=== PATIENT | female | born 1950 | race Caucasian/White ===

== ENCOUNTER 2017-07-27 21:16 | Emergency (ER) | payer MEDICARE, OTHER ==
[~2017-07-27] VITALS: Ht 152.4 cm; Wt 86.2 kg
[~2017-07-27 21:16] MED LIST: ACID CONTROL20 MG PO; ASPIR 8181 MG PO; ASPIRIN325 PO; ATIVAN1 MG PO; BAYER CHEWABLE81 MG PO; CELEXA10 MG PO; COMPLETE MULTI1 EACH PO; COREG6.25 MG PO; EFFIENT10 MG PO; ELIQUIS5 MG; ELIQUIS5 MG PO; FISH OIL 1,001000 M2 PO; FLAX SEED OIL1000 MG PO; FLECAINIDE ACET50 M1 PO; FLEXERIL PO; GAS RELIEF125 M1 PO; IMDUR 30 MG TAB30 M1 PO; KLOR-CON 1010 MEQ PO; LASIX 20 MG TAB20 MG PO; LISINOPRIL10 MG PO; LISINOPRIL40 MG PO; LISINOPRIL5 MG PO; MAGNESIUM OXID400 MG PO; METOPROLOL SUCC25 M1 PO; MINOCIN100 MG PO; MOBIC15 MG PO; NAPROSYN500 MG PO; NIACIN500 MG PO; NITROGLYCERIN0.4 MG SUBLING; NORVASC 5 MG TAB5 MG PO; NORVASC5 MG PO; PACERONE 200 M200 M1 PO; PEPCID20 MG PO; PLAVIX 75 MG TA75 M1 PO; POTASSIUM GLUC500 MG PO; PRAVASTATIN SOD20 MG PO; PRAVASTATIN SOD40 MG PO; PREVACID30 MG PO; PROAIR HFA8.5 GM INH; RANEXA500 MG PO; RESTORIL30 MG PO; SENNA8.6 MG PO; TOPROL XL25 MG PO; TOPROL XL50 MG PO; TYLENOL325 MG PO; UNICOMPLEX M TA1 TA1 PO; VITAMIN B122500 MCG PO; VITAMIN C500 M1 PO; VITAMIN D1000 UNI1 PO; VITAMIN E400 UNIT PO
[2017-07-27] MEDS ORDERED: HYDROCODONE-AP1 EAC6 PO (22:40)
[2017-07-27 23:44] VITALS: BP 120/74
[2017-08-24] MEDS ORDERED: ASPIR 8181 MG PO (10:35)
[2017-08-24] MEDS ORDERED: CARDIZEM CD180 MG PO (10:38)
[2017-08-24] MEDS ORDERED: VOLTAREN GEL 1100 G2 TOP (10:38)
[2018-02-01] MEDS ORDERED: MULTAQ400 MG PO (07:23)
[2018-02-01] MEDS ORDERED: MULTI VITAMIN1 EACH PO (07:24)
[2018-03-08] MEDS ORDERED: COREG6.25 MG PO (12:31)
[2018-03-08] MEDS ORDERED: FISH OIL 1,001000 M2 PO (12:34)
[2018-03-08] MEDS ORDERED: PEPCID20 MG PO (12:34)
[2018-03-08] MEDS ORDERED: LASIX 20 MG TAB20 MG PO (12:35)
== END 2017-07-27 23:46 | disposition home or self-care (01) ==
LOC: M.ERS 21:16
DX: S52.511A Displaced fracture of right radial styloid process, initial encounter for closed fracture (principal); S62.617A Displaced fracture of proximal phalanx of left little finger, initial encounter for closed fracture; I10 Essential (primary) hypertension; I25.10 Atherosclerotic heart disease of native coronary artery without angina pectoris; I48.91 Unspecified atrial fibrillation; G47.30 Sleep apnea, unspecified; Z86.73 Personal history of transient ischemic attack (TIA), and cerebral infarction without residual deficits; Z87.891 Personal history of nicotine dependence; W01.0XXA Fall on same level from slipping, tripping and stumbling without subsequent striking against object, initial encounter; Y93.89 Activity, other specified; Y92.89 Other specified places as the place of occurrence of the external cause; Y99.8 Other external cause status

== ENCOUNTER → 2017-07-30 | Outpatient (CLI) | payer MEDICARE, OTHER ==
[~2017-07-30] MED LIST changes: +ATORVASTATIN CA40 MG PO; +CARAFATE 1 GM TA1 G1 PO; +CARAFATE 11 GM/10 M1 PO; +CARDIZEM CD180 MG PO; +CARVEDILOL3.125 MG PO; +DILTIAZEM 24HR180 M1 PO; +HYDROCODONE-AP1 EAC6 PO; +MULTAQ400 MG PO; +MULTI VITAMIN1 EACH PO; +PANTOPRAZOLE SO40 M1 PO; +VOLTAREN GEL 1100 G2 TOP
--- NOTE | 2017-07-30 14:14 | 2DMMODE ---
[place] [address] 2 D/M-MODE ECHOCARDIOGRAM Name: FRANCISCO J FLOWERS I Room: [facility]#: [id number] Admission: 07/30/17 Attend Phys: Juvenal Terrazas, Discharge: Date of : 50 Date of Service: 07/30/17 1414 Report #: [id number] THIS REPORT FOR: //name// APPROVED REPORT Study performed: 07/30/2017 08:13:02 EXAM: Comprehensive 2D, Doppler, and color-flow Echocardiogram Patient Location: Out-Patient Status: routine BSA: 1.83 HR: 71 bpm BP: 86/58 mmHg Other Information Study Quality: Good Indications Congestive Heart Failure Atrial Fibrillation 2D Dimensions IVSd: 11.53 (7-11mm) LVOT Diam: 20.77 (18-24mm) LVDd: 42.32 mm PWd: 9.14 (7-11mm) Ascending Ao: 26.50 (22-36mm) LVDs: 33.09 (25-40mm) Aortic Root: 25.47 mm Volumes Left Atrial Volume (Systole) LA ESV Index: 44.00 mL/m2 Aortic Valve AoV Peak Jacky.: 0.97 m/s AO Peak Gr.: 3.73 mmHg LVOT Max P.99 mmHg AO Mean Gr.: 1.97 mmHg LVOT Mean P.54 mmHg LVOT Max V: 0.50 m/s AO V2 VTI: 17.80 cm LVOT Mean V: 0.34 m/s TALHA (VTI): 1.78 cm2 LVOT V1 VTI: 9.35 cm Mitral Valve E/A Ratio: 3.80 MV Decel. Time: 169.90 ms MV E Max Jacky.: 0.82 m/[place] [address] 2 D/M-MODE ECHOCARDIOGRAM Name: FRANCISCO J FLOWERS I Room: [facility]#: [id number] Admission: 07/30/17 Attend Phys: Juvenal Terrazas, Discharge: Date of : 50 Date of Service: 07/30/17 1414 Report #: [id number] MV PHT: 49.27 ms MVA (PHT): 4.47 cm2 TDI E/Lateral E': 4.56 E/Medial E': 7.45 Medial E' Jacky.: 0.11 m/s Lateral E' Jacky.: 0.18 m/s Pulmonary Valve PV Peak Jacky.: 0.81 m/s PV Peak Gr.: 2.62 mmHg Tricuspid Valve TR Peak Gr.: 25.44 mmHg RVSP: 29.44 mmHg Left Ventricle The left ventricle is normal size. There is global hypokinesis of the left ventricle. There is normal left ventricular wall thickness. Left ventricular systolic function is severely decreased. LVEF is 30-35%. Right Ventricle The right ventricle is normal size. The right ventricular systolic function is normal. Atria Left atrium is moderately dilated. The right atrium size is normal. Aortic Valve The aortic valve is normal in structure. No aortic regurgitation is present. There is no aortic valvular stenosis. Mitral Valve The mitral valve is normal in structure. Mild mitral regurgitation. No evidence of mitral valve stenosis. Tricuspid Valve The tricuspid valve is normal in structure. Mild tricuspid regurgitation. The RVSP is __29 mmHg. Pulmonic Valve The pulmonary valve is normal in structure. Mild pulmonic regurgitation. Great Vessels The aortic root is normal in size. IVC is [place] [address] 2 D/M-MODE ECHOCARDIOGRAM Name: FRANCISCO J FLOWERS I Room: [facility]#: [id number] Admission: 07/30/17 Attend Phys: Juvenal Terrazas, Discharge: Date of : 50 Date of Service: 07/30/17 1414 Report #: [id number] collapses with >50% inspiration Pericardium There is no pericardial effusion. <Conclusion> LVEF is 30-35%. Left atrium is moderately dilated. Mild mitral regurgitation. <ELECTRONICALLY SIGNED> By: Celestino Hooper MD, [facility] 07/30/17 1414 1414 141 Celestino Hooper MD, [facility] /INF
== END ==
LOC: M.CRD 07:59
DX: I08.1 Rheumatic disorders of both mitral and tricuspid valves (principal); I42.0 Dilated cardiomyopathy; I50.9 Heart failure, unspecified; I48.91 Unspecified atrial fibrillation; I10 Essential (primary) hypertension; E78.5 Hyperlipidemia, unspecified; I25.110 Atherosclerotic heart disease of native coronary artery with unstable angina pectoris; G45.9 Transient cerebral ischemic attack, unspecified; Z90.49 Acquired absence of other specified parts of digestive tract; Z87.891 Personal history of nicotine dependence

== ENCOUNTER → 2017-08-24 | Outpatient (CLI) | payer MEDICARE, OTHER ==
[~2017-08-24] VITALS: Ht 154.9 cm; Wt 87.5 kg
[2017-08-24 10:00] VITALS: BP 127/92
[2017-08-24 10:07] LABS: HEMOGLOBIN 14.5 gm/dL (12.0-15.0); MCH 30.4 pg (26.0-34.0); MCV 92.1 fL (80.0-100.0); MPV 8.7 fl. (7.2-11.1); RBC 4.78 mil/uL (4.20-5.00); RDW-CV 14.9 % (10.5-14.5)
[2017-08-24 10:13] LABS: CALCIUM 9.3 mg/dL (8.5-10.1); CREATININE 0.9 mg/dL (0.6-1.3); POTASSIUM 4.1 mmol/L (3.5-5.1)
[2017-08-24 10:15] LABS: APTT 30.9 Seconds (25.0-31.3); INR 1.1; PROTIME 10.4 Seconds (9.20-11.50)
[2017-08-24 13:17] VITALS: BP 151/100
[2017-08-24 13:33] VITALS: BP 149/101
[2017-08-24 14:04] VITALS: BP 166/102
[2017-08-24 14:30] VITALS: BP 150/82
--- NOTE | 2017-08-24 18:12 | EKG ---
[place] [address] ELECTROCARDIOGRAM REPORT Name: FRANCISCO J FLOWERS I Room: [facility]#: [id number] Admission: 08/24/17 Attend Phys: Juvenal Terrazas MD Discharge: Date of : 50 Report #: [id number] THIS REPORT FOR: //name// [facility] Test Date: 2017-08-24 Test Time: 10:11:21 Pat Name: FRANCISCO J FLOWERS Department: Room: Gender: F General Assignment Reporter: CUAUHTEMOC : 1950 Requested By: Magdiel Mitchell Order Number: [id number] Reading MD: Magdiel Mitchell Measurements Intervals [place] Rate: 102 P: CA: QRS: 4 QRSD: 89 T: 56 QT: 331 QTc: 432 Interpretive Statements Atrial fibrillation Borderline T wave abnormalities Compared to ECG 03/30/2017 07:05:43 T-wave abnormality now present Sinus rhythm no longer present First degree AV block no longer present Intraventricular conduction delay no longer present Electronically Signed On 08-24-2017 18:12:16 CDT by Magdiel Mitchell [email or web address] <ELECTRONICALLY SIGNED> By: Magdiel Mitchell MD, FACC 08/24/17 1812 1011 1011 Magdiel Mitchell MD, FAC /EPI
--- NOTE | 2017-08-24 18:13 | EKG ---
[place] [address] ELECTROCARDIOGRAM REPORT Name: FRANCISCO J FLOWERS I Room: [facility]#: [id number] Admission: 08/24/17 Attend Phys: Juvenal Terrazas MD Discharge: Date of : 50 Report #: [id number] THIS REPORT FOR: //name// [facility] Test Date: 2017-08-24 Test Time: 13:13:05 Pat Name: FRANCISCO J FLOWERS Department: Room: Gender: F Parent Educator: CUAUHTEMOC : 1950 Requested By: Magdiel Mitchell Order Number: [id number] Reading MD: Magdiel Mitchell Measurements Intervals [place] Rate: 101 P: MT: QRS: 3 QRSD: 103 T: 33 QT: 354 QTc: 459 Interpretive Statements Atrial fibrillation Compared to ECG 03/30/2017 07:05:43 Sinus rhythm no longer present First degree AV block no longer present Intraventricular conduction delay no longer present Electronically Signed On 08-24-2017 18:13:35 CDT by Magdiel Mitchell [email or web address] <ELECTRONICALLY SIGNED> By: Magdiel Mitchell MD, [facility] 08/24/17 181 131 12 Magdiel Mitchell MD, FAC /EPI
--- NOTE | 2017-09-13 17:54 | CARD ---
[address] [address] CARDIAC CATH REPORT Name: FRANCISCO J FLOWERS I [id number] Admission: 08/24/17 Attend Phys: Juvenal Terrazas MD Discharge: Date of : 50 Report #: [id number] THIS REPORT FOR: //name// APPROVED REPORT Study performed: 08/24/2017 10:57:38 Patient Status: Out-Patient Room #: Event Personnel: Magdiel Mitchell Aircraft Engine Mechanic Overhaul, Kyung Plasencia RN Foreclosure Field Inspector, Nupur Nunez Monitor, Darrell Nguyen (R) Scrub Exam: placement of a dual-chamber pacing ICD. Indications: dilated cardiomyopathy The patient is a 67 year-old female with a history of . Patient Info Last EF%: 30% Date: July 2017 NYHA Heart Class: II Reason for implant: Primary prevention Intraoperative Conscious Sedation Sedation start time: 11:35 Case end Time: 12:31 Fentanyl 100 mcg Versed 3 mg Implanted Devices: Biotronik Plexa ProMRI, model #992355, serial #[id number] Biotronik Solia S 53, model #456248, serial #[id number] Biotronik Ilivia 7 DR-T, model #246486, serial #[id number] Procedure After explaining the risks, benefits, and alternative options, informed consent was obtained from the patient. The patient was brought to the cardiac catheterization lab and the left chest and shoulder were prepped and draped in the usual fashion. During this case, Fluoroscopy and visipaque 20cc were used for imaging. After informed consent was obtained the patient was brought to the cardiac catheterization lab. The area of the left chest was prepped and draped in sterile fashion. Local anesthesia was achieved with 1% lidocaine. Next after an initial [place] [address] CARDIAC CATH REPORT Name: FRANCISCO J FLOWERS I Room: [facility]#: [id number] Admission: 08/24/17 Attend Phys: Juvenal Terrazas MD Discharge: Date of : 50 Report #: [id number] was formed over the left pectoralis muscle using electrocautery and blunt dissection. Next the left subclavian vein was accessed using a micropuncture kit after and peripheral injection of contrast dye. Ultimately a safety J guidewire was advanced to level right atrium under fluoroscopic guidance. The safety J guidewire was externally fixed using a Josiane forcep. The micropuncture kit was utilized a second time to access the left subclavian vein. A second safety J guidewire was advanced to the right atrium under fluoroscopic guidance. Next a 7 Niuean tear-away introducer was advanced over the free guidewire. The dilator and guidewire were removed and a pacing defibrillator lead advanced to the right ventricle under fluoroscopic guidance. The lead was actively fixed. Pacing threshold and sensing were checked and deemed to be satisfactory. There was no diaphragmatic stimulation at maximal output. The tear-away introducer was then removed. Next a second 7 Niuean tear-away introducer was advanced over the remaining guidewire. The dilator and guidewire were removed and an atrial lead advanced to the right atrial appendage under fluoroscopic guidance. The lead was actively fixed. Pacing threshold and sensing were checked and deemed to be satisfactory. There was no phrenic nerve stimulation at maximal output. The tear-away introducer was then removed. Adequate slack was assured and the atrial and ventricular leads. The atrial and ventricular leads were then secured within the device pocket using the designated cuff and interrupted stitches of 2-0 silk suture. The device pocket was then flushed with antibiotic solution. Next a dual-chamber pacing ICD generator was attached to the atrial and ventricular leads. The generator and redundant lead were then placed within the device pocket. The deep tissues were closed using interrupted stitches of 2-0 Vicryl. The skin incision was then closed with a single subcuticular stitch of 4-0 Vicryl. Findings The sensed P-wave was 2.2 mV. The sensed R-wave was 8.9 mV. The atrial lead pacing threshold was not checked as the patient was in atrial fibrillation. The ventricular lead pacing threshold was 0.6 V at 0.40 ms. Atrially pacing impedance was 566 ohms. The ventricular lead pacing impedance was 696 ohms. Ventricular lead shocking impedance was 58 ohms. The device was set to the DDD mode with a lower pacing rate of 50 bpm and an upper tracking rate 130 bpm. VT 1 zone 154 bpm. VT 2 zone 176 bpm. VF zone 250 bpm. Conclusion 1. Dilated cardiomyopathy with reduced EF despite maximal medical [facility] [address] [place] [address] CARDIAC CATH REPORT Name: FRANCISCO J FLOWERS I Room: [facility]#: [id number] Admission: 08/24/17 Attend Phys: Juvenal Terrazas MD Discharge: Date of : 50 Report #: [id number] management. 2. Successful placement of a dual-chamber pacing defibrillator. Recommendations 1. Follow-up site check in one week. <ELECTRONICALLY SIGNED> By: Magdiel Mitchell MD, FACC 09/13/17 1754 1754 1754Micjeffery Mitchell MD, FACC /INF
== END | disposition home or self-care (01) ==
LOC: M.CL 09:33
PROVIDERS: Internal Medicine Cardiovascular Disease
DX: I42.0 Dilated cardiomyopathy (principal); I48.91 Unspecified atrial fibrillation; I10 Essential (primary) hypertension; I25.10 Atherosclerotic heart disease of native coronary artery without angina pectoris; G47.33 Obstructive sleep apnea (adult) (pediatric); Z95.5 Presence of coronary angioplasty implant and graft; Z90.49 Acquired absence of other specified parts of digestive tract; Z86.73 Personal history of transient ischemic attack (TIA), and cerebral infarction without residual deficits; Z79.01 Long term (current) use of anticoagulants; Z98.890 Other specified postprocedural states; Z79.82 Long term (current) use of aspirin; Z79.899 Other long term (current) drug therapy

== ENCOUNTER → 2017-08-31 | Outpatient (CLI) | payer MEDICARE, OTHER ==
[2017-08-31 15:22] LABS: CALCIUM 9.2 mg/dL (8.5-10.1); CREATININE 1.4 mg/dL (0.6-1.3); POTASSIUM 4.6 mmol/L (3.5-5.1)
== END ==
LOC: M.LAB 14:49
PROVIDERS: Nurse Practitioner
DX: I50.22 Chronic systolic (congestive) heart failure (principal)

== ENCOUNTER → 2017-09-07 | Outpatient (CLI) | payer MEDICARE, OTHER ==
[2017-09-07 11:33] LABS: CALCIUM 9.6 mg/dL (8.5-10.1); CREATININE 0.9 mg/dL (0.6-1.3); POTASSIUM 4.7 mmol/L (3.5-5.1)
== END ==
LOC: M.LAB 11:13
PROVIDERS: Nurse Practitioner
DX: I42.0 Dilated cardiomyopathy (principal); I50.22 Chronic systolic (congestive) heart failure

== ENCOUNTER 2017-09-26 21:44 | Inpatient (IN) | payer MEDICARE, OTHER ==
[~2017-09-26] VITALS: Ht 152.4 cm; Wt 86.7 kg
[~2017-09-26 21:44] MED LIST changes: -ATORVASTATIN CA40 MG PO; -CARAFATE 1 GM TA1 G1 PO; -CARAFATE 11 GM/10 M1 PO; -CARVEDILOL3.125 MG PO; -DILTIAZEM 24HR180 M1 PO; -MULTAQ400 MG PO; -MULTI VITAMIN1 EACH PO; -PANTOPRAZOLE SO40 M1 PO
[2017-09-26 21:45] VITALS: BP 133/64
[2017-09-26 22:02] LABS: ABSOLUTE BASOPHILS 0.1 thou/uL (0.0-0.2); ABSOLUTE EOSINOPHILS 0.2 thou/uL (0.0-0.7); ABSOLUTE MONOCYTES 0.5 thou/uL (0.0-1.2); ABSOLUTE NEUTROPHILS 4.4 thou/uL (1.6-8.1); EOSINOPHILS 3.1 %; HEMATOCRIT 40.9 % (37.0-47.0); HEMOGLOBIN 13.4 gm/dL (12.0-15.0); LYMPHOCYTES 27.4 %; MCH 30.1 pg (26.0-34.0); MCHC 32.7 g/dL (28.0-37.0); MCV 91.9 fL (80.0-100.0); MONOCYTES 7.6 %; MPV 8.4 fl. (7.2-11.1); NUCLEATED RBCS 0 /100WBC; PLATELET COUNT* 219 thou/uL (150-400); POLYS 60.9 %; RBC 4.45 mil/uL (4.20-5.00); WBC 7.2 thou/uL (4.0-11.0)
[2017-09-26 22:11] LABS: ANION GAP 8 mmol/L (7-16); BUN 20 mg/dL (7-18); CALCIUM 8.9 mg/dL (8.5-10.1); CHLORIDE 108 mmol/L (98-107); CO2 29 mmol/L (21-32); GLUCOSE 158 mg/dL (70-99); SODIUM 145 mmol/L (136-145)
[2017-09-26 22:13] LABS: INR 1.1; PROTIME 10.6 Seconds (9.20-11.50)
[2017-09-26 22:21] LABS: ALBUMIN 3.4 g/dL (3.4-5.0); ALKALINE PHOSPHATASE 87 U/L (46-116); NT-PRO BRAIN NAT PEPTIDE 1529 pg/mL (<300); SGOT 17 U/L (15-37); SGPT 19 U/L (30-65); TOTAL BILIRUBIN 0.2 mg/dL (<0.1-1.0); TROPONIN-I LEVEL <0.06 ng/mL (<0.06)
[2017-09-27] VITALS (17 sets, daily range): BP systolic 111–1131; BP diastolic 48–97
--- NOTE | 2017-09-27 04:47 | NUR ---
PATIENT ARRIVED ON UNIT AT 0210. EMBEDDED SYSTEMS ENGINEER ASSESSMENT COMPLETED DOCUMENTED. NO COMPLAINTS OF PAIN OR DISCOMFORT NOTED. NO SKIN ISSUES. PATIENT ALERT AND ORIENTED X 4. ABLE TO ANSWER ALL QUESTIONS APPROPRIATELY. VERY PLEASANT INDIVIDUAL. UNDERSTANDS AND COMPLIANT WITH NPO FOR CARDIOLOGY CONSULT. VITAL SIGNS REMAIN STABLE. SINUS PACED ON THE MONITOR. WILL CONTINUE TO MONITOR.
[2017-09-27 05:05] LABS: HEMOGLOBIN 12.7 gm/dL (12.0-15.0); MCH 30.4 pg (26.0-34.0); MCHC 32.6 g/dL (28.0-37.0); MCV 93.1 fL (80.0-100.0); MPV 8.6 fl. (7.2-11.1); RBC 4.19 mil/uL (4.20-5.00); WBC 8.2 thou/uL (4.0-11.0)
[2017-09-27 05:14] LABS: ALBUMIN 3.2 g/dL (3.4-5.0); CALCIUM 8.7 mg/dL (8.5-10.1); CREATININE 0.7 mg/dL (0.6-1.3); POTASSIUM 4.4 mmol/L (3.5-5.1); TOTAL BILIRUBIN 0.2 mg/dL (<0.1-1.0); TOTAL PROTEIN 6.1 g/dL (6.4-8.2)
--- NOTE | 2017-09-27 11:45 | NUR ---
SPOKE WITH PT. SHE LIVES WITH HER DTR AND GRANDDTR, SHE IS HOME ALONE DURING THE DAY. SHE IS NORMALLY ACTIVE AND INDEP, INCLUDING DRIVING. SHE SAID HER FAMILY IS WANTING HER TO GET A LIFELINE SINCE SHE IS HOME ALONE. WILL ADD INFORMATION TO PT'S DISCHARGE INSTRUCTIONS ON GETTING A LIFELINE FOR HOME. PT SAID SHE HAS A CELL PHONE AND ALWAYS HAS THAT WITH HER WHEN SHE IS OUT OF THE HOUSE AND COULD START KEEPING IT WITH HER ALL THE TIME WHEN SHE IS IN THE HOUSE SO SHE ISN'T SURE THAT SHE NEEDS A LIFELINE BUT WILL CONSIDER IT SINCE HER FAMILY ASKED ABOUT IT. PT DENIES ANY OTHER DISCHARGE NEEDS. DISCUSSED ROLE OF CASE MGT, WILL CONTINUE TO FOLLOW.
--- NOTE | 2017-09-27 15:27 | 2DMMODE ---
[place] [address] 2 D/M-MODE ECHOCARDIOGRAM Name: FRANCISCO J FLOWERS I Room: [address] ADM IN [facility]#: [id number] Admission: 09/26/17 Attend Phys: Kei Hinton Discharge: Date of : 50 Date of Service: 09/27/17 1527 Report #: [id number] THIS REPORT FOR: //name// APPROVED REPORT Study performed: 09/27/2017 10:07:44 EXAM: Comprehensive 2D, Doppler, and color-flow Echocardiogram Patient Location: In-Patient Room #: [facility] Status: routine BSA: 1.82 HR: 70 bpm BP: 142/71 mmHg Rhythm: NSR Other Information Study Quality: Good Indications Arrhythmia Pacemaker 2D Dimensions LVEF(%): 61.12 (>50%) IVSd: 11.08 (7-11mm) LVOT Diam: 19.56 (18-24mm) LVDd: 51.15 mm PWd: 11.35 (7-11mm) Ascending Ao: 31.30 (22-36mm) LVDs: 34.31 (25-40mm) Aortic Root: 27.34 mm Le's LVEF: 61.12 % Volumes Left Atrial Volume (Systole) LA ESV Index: 62.50 mL/m2 Aortic Valve AoV Peak Jacky.: 1.02 m/s AO Peak Gr.: 4.17 mmHg LVOT Max P.97 mmHg AO Mean Gr.: 2.52 mmHg LVOT Mean P.92 mmHg LVOT Max V: 0.70 m/s AO V2 VTI: 22.60 cm LVOT Mean V: 0.44 m/s TALHA (VTI): 2.24 cm2 LVOT V1 VTI: 16.87 [place] [address] 2 D/M-MODE ECHOCARDIOGRAM Name: FRANCISCO J FLOWERS I Room: [address] IN ..#: [id number] Admission: 09/26/17 Attend Phys: Kei Hinton Discharge: Date of : 50 Date of Service: 09/27/17 1527 Report #: [id number] E/A Ratio: 4.54 MV Decel. Time: 188.55 ms MV E Max Jacky.: 1.09 m/s MV PHT: 54.68 ms MVA (PHT): 4.02 cm2 TDI E/Lateral E': 6.81 E/Medial E': 10.90 Medial E' Jacky.: 0.10 m/s Lateral E' Jacky.: 0.16 m/s Pulmonary Valve PV Peak Jacky.: 0.78 m/s PV Peak Gr.: 2.45 mmHg Tricuspid Valve TR Peak Gr.: 37.25 mmHg RVSP: 42.00 mmHg Left Ventricle The left ventricle is normal size. There is normal LV segmental wall motion. There is normal left ventricular wall thickness. Left ventricular systolic function is moderately decreased. LVEF is 35%. Grade IV - fixed restrictive diastolic dysfunction. Right Ventricle The right ventricle is normal size. The right ventricular systolic function is normal. Pacemaker lead is present in the right ventricle. Atria Left atrium is severely dilated. The right atrium size is normal. Aortic Valve The aortic valve is normal in structure. Trace aortic regurgitation. There is no aortic valvular stenosis. Mitral Valve The mitral valve is normal in structure. Mild mitral regurgitation. No evidence of mitral valve stenosis. Tricuspid Valve The tricuspid valve is normal in structure. Mild tricuspid regurgitation. The RVSP is 40-45 mmHg. Pulmonic Valve The pulmonary valve is normal in structure. Mild [place] [address] 2 D/M-MODE ECHOCARDIOGRAM Name: FRANCISCO J FLOWERS I Room: [address] IN ..#: [id number] Admission: 09/26/17 Attend Phys: Kei Hinton Discharge: Date of : 50 Date of Service: 09/27/17 1527 Report #: [id number] Great Vessels The aortic root is normal in size. IVC is normal in size and collapses with >50% inspiration Pericardium There is no pericardial effusion. <Conclusion> The left ventricle is normal size. There is normal left ventricular wall thickness. Left ventricular systolic function is moderately decreased. LVEF is 35%. Grade IV - fixed restrictive diastolic dysfunction. Pacemaker lead is present in the right ventricle. Left atrium is severely dilated. Mild mitral regurgitation. Mild tricuspid regurgitation. The RVSP is 40-45 mmHg. Mild pulmonic regurgitation. <ELECTRONICALLY SIGNED> By: Magdiel Mitchell MD, FACC 09/27/17 1527 1527 1527 Magdiel Mitchell MD, FACC /INF
--- NOTE | 2017-09-27 17:48 | EKG ---
[place] [address] ELECTROCARDIOGRAM REPORT Name: FRANCISCO J FLOWERS I Room: [address] ADM IN [facility]#: [id number] Admission: 09/26/17 Attend Phys: Live Sykes Discharge: Date of : 50 Report #: [id number] THIS REPORT FOR: //name// [facility] ED Test Date: 2017-09-26 Test Time: 21:48:58 Pat Name: FRANCISCO J FLOWERS Department: Room: [facility] Gender: F Scientific Investigator: MEETA : 1950 Requested By: Trinity Barajas Order Number: [id number] MD: Tommie Ku Measurements Intervals [place] Rate: 81 P: -14 AR: 156 QRS: -14 QRSD: 144 T: -71 QT: 379 QTc: 440 Interpretive Statements sinus rhythm Compared to ECG 08/24/2017 13:13:05 Atrial fibrillation no longer present Electronically Signed On 09-27-2017 17:48:01 CDT by Tommie Ku [email or web address] <ELECTRONICALLY SIGNED> By: Tommie Ku MD, [facility] 09/27/17 174 47 47 Tommie Ku MD, [facility] /EPI
--- NOTE | 2017-09-27 20:02 | NUR ---
REPORT GIVEN TO RN ON 2WEST AND PATIENT WILL GO TO ROOM 200. NO EVENTS REPORTED DURING THE DAY. VSS. ASSESSMENT CHARTED. NO OTHER COMPLAINTS THROUGHOUT THE DAY.
--- NOTE | 2017-09-27 22:50 | NUR ---
SPOKE TO DR. DELONG IN REGARDS TO PT'S SOF BP AND LOW BULSE, NEW ORDERS RECEIVED, SEE EMAR FOR DOCUMENTATION. AMNODARONE DOSE CHANGED TO 33.3118 ML/HR. CALL LIGHT WITHIN REACH.
[2017-09-28] VITALS (8 sets, daily range): BP systolic 94–122; BP diastolic 42–60
--- NOTE | 2017-09-28 04:30 | NUR ---
PT OBSERVED TO HAVE SWELLING TO UPPER LIP, PT STATES IT IS TENDER TO TOUCH, STATES SHE HAS HAD THE SWELLING SINCE YESTERDAY. WILL CONTINUE TO MONITOR.
--- NOTE | 2017-09-28 05:06 | NUR ---
RECEIVED REPORT FROM INFANTRYMAN EMELYN AT 1950, PT ARRIVED TO UNIT VIA WHEELCHAIR AT 2019. PT AAOX4, ORIENTED TO ROOM AND CALL LIGHT. FAMILY AT [facility], IV AMNIODARONE INFUSING. CALL LIGHT WITHIN REACH, SCDS IN PLACE, DENIES PAIN THIS SHIFT. HOURLY ROUNDING COMPLETED, CALL LIGHT WIITHIN REACH.
--- NOTE | 2017-09-28 09:55 | CON ---
[address] [address] CONSULTATION Name: FRANCISCO J FLOWERS I Room: [address] IN ..#: [id number] Admission: 09/26/17 Attend Phys: Live Sykes Discharge: Date of : 50 Report #: [id number] THIS REPORT FOR: //name// CC: Celestino Hinton INDICATION: ICD discharge times 2 last evening. HISTORY OF PRESENT ILLNESS: The patient is a very pleasant female who is well known to myself. She has a history of an ischemic cardiomyopathy with an ejection fraction of 35%. She underwent elective ICD placement in August 2017, for primary prevention. She recovered in usual fashion. Last evening, she received two discharges from her defibrillator and presented to the hospital for further evaluation. Interrogation of her defibrillator this morning shows that she developed an atrial flutter with a very fast rate with 2:1 ventricular conduction. This was sensed by her ICD as a significant arrhythmia for which she received ICD shock times 2. The second shock converted her back to sinus rhythm. I do not see evidence of ventricular arrhythmias on her interrogation. Interestingly, she had no symptoms prior to the discharge of her defibrillator. She does have a history of paroxysmal atrial fibrillation and is chronically anticoagulated for this. She denies any chest pain. She was not having shortness of breath. At that time, she was getting ready for bed and having no difficulties. PAST MEDICAL HISTORY: 1. Coronary artery disease. 2. Ischemic cardiomyopathy. 3. Paroxysmal atrial fibrillation. 4. ICD placement for primary prevention. 5. Paroxysmal atrial flutter. 6. Previous history of stroke without residual. 7. History of pleural effusion. 8. Obstructive sleep apnea. PAST SURGICAL HISTORY: 1. Cholecystectomy. 2. Appendectomy. 3. Carpal tunnel release. FAMILY HISTORY: Noncontributory. SOCIAL HISTORY: The patient quit smoking remotely. She is not a current smoker. REVIEW OF SYSTEMS: A 14-point review of systems negative except [place] [address] CONSULTATION Name: FRANCISCO J FLOWERS I Room: [address]#: [id number] Admission: 09/26/17 Attend Phys: Live Sykes Discharge: Date of : 50 Report #: [id number] PHYSICAL EXAMINATION: VITAL SIGNS: Stable. Blood pressure was 123/77, pulse is 68 and regular. GENERAL: This is a pleasant female, in no distress. Mood and affect appropriate. HEENT: Extraocular muscles are intact. Mucous membranes are moist. NECK: Shows no jugular venous distention. There are no carotid bruits. CHEST: Reveals clear lung monsalve without wheezes or rales. The ICD site is well healed. CARDIAC: Reveals a regular rhythm with normal S1 and S2. I do not appreciate gallop or murmur. ABDOMEN: Reveals normal bowel sounds. The abdomen is soft and nontender. EXTREMITIES: Shows no edema. Peripheral pulses 2+ and palpable. IMPRESSION AND RECOMMENDATIONS: 1. Ischemic cardiomyopathy. We will adjust medications as tolerated during hospitalization for heart failure. She is presently well compensated. 2. Coronary artery disease, presently well compensated. She is having no symptoms to suggest angina. 3. Paroxysmal atrial arrhythmias. The patient is on Eliquis and tolerating this without bleeding problems. I am starting amiodarone to avoid further rapid rate atrial arrhythmias that may trigger ICD discharge. We will discuss with electrophysiology regarding possible ablation therapy. 4. ICD discharge due to atrial arrhythmias. Review of the data shows appropriate sensing and function of the ICD. She did not, however, have ventricular arrhythmias. 5. Hypertension, presently stable. We will adjust heart failure medications as tolerated by blood pressure. 6. Hyperlipidemia. We will check fasting lipid profile and adjust statin agents as needed. <ELECTRONICALLY SIGNED> By: Magdiel Mitchell MD, FACC 09/28/17 0955 0958 [id number] Mitchell MD, FACC /nt
--- NOTE | 2017-09-28 10:27 | NUR ---
ASSUMED CARE OF PT AT 0730. PT RESTING IN BED WAITING FOR BREAKFAST. PT DAUGHTER AT BEDSIDE. PT A&0X4. PT DENIES ANY PAIN OR SHORTNESS OF BREATH AT THIS TIME. PT TRACING V-PACED ON THE CARTON FORMING MACHINE ADJUSTER. RATE IN THE 50'S. PT ON AMIO GTT. PO CARDIZEM HELD THIS AM. CARDIOLOGY HERE TO SEE PT. PO CARDIZEM DISCONTINUED. PT TO TRANSITION TO PO AMIO TODAY. PT ON RA SAT UPPER 90'S. PT WEARS HOME CPAP AT NOC AND WHEN SLEEPING. PT UP WITH 1 ASSIST TO BATHROOM. PT GOAL FOR TODAY IS TO MONITOR HEART RATE AND BLOOD PRESSURE, TRANSITION TO PO AMIO, INCREASE STRENGTH AND PAIN MGMT. AM ASSESSMENT CHARTED. MEDICATIONS PER AUG. PT REPOSITIONS SELF IN BED WITH REMINDERS. HOURLY ROUNDING OBSERVED. BED IN LOW POSITION. BED ALARM IN PLACE. FALL PRECAUTIONS IN PLACE. CALL LIGHT WITHIN REACH. WILL CONTINUE PLAN OF CARE.
[2017-09-28 14:45] LABS: URINE BILIRUBIN NEGATIVE (Negative); URINE BLOOD NEGATIVE (Negative); URINE CLARITY CLEAR; URINE COLOR YELLOW; URINE GLUCOSE-RANDOM NEGATIVE (Negative); URINE KETONES NEGATIVE (Negative); URINE LEUKOCYTES-REFLEX NEGATIVE (Negative); URINE NITRITE-REFLEX NEGATIVE (Negative); URINE PROTEIN NEGATIVE (Negative); URINE SPECIFIC GRAVITY 1.015 (1.005-1.030); URINE UROBILINOGEN 0.2 E.U./dl (0.2-1.0)
--- NOTE | 2017-09-28 18:46 | NUR ---
NO ACUTE CHANGES THROUGHOUT SHIFT. REFER TO CHARTING. PT SLOWLY PROGRESSING TOWARDS GOALS. PT TRANSITIONED TO PO AMIODARONE. CARDIZEM DISCONTINUED. COREG DOSAGE DECREASED TO 6.25MG BID. EVENING DOSE OF COREG HELD DUE TO LOW BLOOD PRESSURE. DR CARVER AWARE. URINALYSIS BACK-RESULTS NEGATIVE. POSSIBLE DISCHARGE HOME TOMORROW AFTER AMIO LOAD. PT CONTINUES TO TRACE V PACED ON THE CAREER TECHNICAL EDUCATION INSTRUCTOR. RATE IN THE 50'S. PT ON RA SAT UPPER 90'S. DENIES ANY SHORTNESS OF BREATH. PT COMPLAINS OF PAIN TO HEAD. TREATED WITH PRN TYLENOL WITH PARTIAL RELIEF. PT COMPLAINED OF NAUSEA THIS AFTERNOON, TREATED WITH PRN ZOFRAN WITH RELIEF. PT STATES SHE GETS NAUSEA FROM TAKING AMIO. PT UP WITH 1 ASSIST TO BATHROOM. MEDICATIONS PER AUG. PT REPOSITIONS SELF IN BED WITH REMINDERS. HOURLY ROUNDING OBSERVED. BED IN LOW POSITION. BED ALARM IN PLACE. FALL PRECAUTIONS IN PLACE. CALL LIGHT WITHIN REACH. WILL CONTINUE PLAN OF CARE.
[2017-09-29 03:49] VITALS: BP 127/54
--- NOTE | 2017-09-29 04:53 | NUR ---
PT IS ABLE TO COMMUNICATE HER NEEDS TO STAFF EFECTIVELY. CURRENT PAIN MEDICATION REGIMEN HAS BEEN ADEQUATE FOR CONTROLLING HER PAIN UP TO THIS TIME. CARDIOLOGY IS CONSULTED. POSSIBLE DISCHARGE LATER TODAY.
[2017-09-29 08:00] VITALS: BP 138/70
--- NOTE | 2017-09-29 11:02 | NUR ---
ASSUMED CARE OF PT AT 0730. PT RESTING IN BED WAITING FOR BREAKFAST. PT A&0X4. PT COMPLAINS OF HEADACHE-08/18. TREATED WITH PRN TYLENOL WITH RELIEF. PT TRACING VPACED ON THE AIR QUALITY CONSULTANT. RATE IN THE 50'S. PT ON AMIO LOAD. PT GIVEN PO ANTI NAUSEA MEDICATION WITH AMIO THIS AM TO HELP PREVENT NAUSEA. PT ON RA SAT UPPER 90'S. DENIES ANY SHORTNESS OF BREATH. PT GIVEN STOOL SOFTENER THIS AM FOR CONSTIPATION. PT UP WITH 1 ASSIST TO BATHROOM. PT GOAL FOR TODAY IS TO MONITOR BLOOD PRESSURE AND HEART RATE/RHYTHM AND INCREASE ACTIVITY. AM ASSESSMENT CHARTED. MEDICATIONS PER AUG. PT REPOSITIONS SELF IN BED WITH REMINDERS. HOURLY ROUNDING OBSERVED. BED IN LOW POSITION. CALL LIGHT WITHIN REACH. WILL CONTINUE PLAN OF CARE.
[2017-09-29 12:14] VITALS: BP 92/36
[2017-09-29 15:20] VITALS: BP 110/58
[2017-09-29 17:03] VITALS: BP 110/58
--- NOTE | 2017-09-29 18:55 | NUR ---
DISCHARGE ORDERS RECEIVED. DISCHARGE INSTRUCTIONS, CARE NOTES AND FOLLOW UP APPTS GIVEN TO PT. PT COMMUNICATES UNDERSTANDING OF DISCHARGE TEACHING. IV AND BDC MANAGER REMOVED. PT DISCHARGED WITH ALL BELONINGS AND PAPERWORK VIA WHEELCHAIR WITH NURSING STAFF TO DAUGHTER'S OWN PERSONAL VEHICLE. PT TO HAVE OUTPT ABLATION PER CARDIOLOGY IN A WEEK OR TWO, WILL CALL TO SCHEDULE APPT. PT DISCONTINUED OFF OF AMIODARONE AND COREG DECREASED TO 6.25 MG. PT AND PT DAUGHTER AWARE OF CURRENT MEDICATION CHANGES.
[2018-02-01] MEDS ORDERED: MULTAQ400 MG PO (07:23)
[2018-02-01] MEDS ORDERED: MULTI VITAMIN1 EACH PO (07:24)
[2018-03-08] MEDS ORDERED: COREG6.25 MG PO (12:31)
[2018-03-08] MEDS ORDERED: PEPCID20 MG PO (12:34)
[2018-03-08] MEDS ORDERED: FISH OIL 1,001000 M2 PO (12:34)
[2018-03-08] MEDS ORDERED: LASIX 20 MG TAB20 MG PO (12:35)
== END 2017-09-29 18:58 | disposition home or self-care (01) | DRG 308 ==
LOC: M.ERS 21:44 → M.ICU 22:42 → M.TBA-ER 22:42 → M.ICU 09-27 01:08 → M.2W 09-27 19:52
PROVIDERS: Emergency Medicine; ADMIT Internal Medicine
DX: I49.9 Cardiac arrhythmia, unspecified (principal); N17.0 Acute kidney failure with tubular necrosis; I50.42 Chronic combined systolic (congestive) and diastolic (congestive) heart failure; I13.0 Hypertensive heart and chronic kidney disease with heart failure and stage 1 through stage 4 chronic kidney disease, or unspecified chronic kidney disease; I24.9 Acute ischemic heart disease, unspecified; I48.92 Unspecified atrial flutter; I25.10 Atherosclerotic heart disease of native coronary artery without angina pectoris; I25.5 Ischemic cardiomyopathy; I48.0 Paroxysmal atrial fibrillation; G47.33 Obstructive sleep apnea (adult) (pediatric); E78.5 Hyperlipidemia, unspecified; J44.9 Chronic obstructive pulmonary disease, unspecified; K21.9 Gastro-esophageal reflux disease without esophagitis; F41.9 Anxiety disorder, unspecified; N18.9 Chronic kidney disease, unspecified; E86.0 Dehydration; E53.8 Deficiency of other specified B group vitamins; Z98.61 Coronary angioplasty status; Z90.49 Acquired absence of other specified parts of digestive tract; Z86.73 Personal history of transient ischemic attack (TIA), and cerebral infarction without residual deficits; Z79.899 Other long term (current) drug therapy; Z79.82 Long term (current) use of aspirin; Z87.891 Personal history of nicotine dependence; Z99.81 Dependence on supplemental oxygen; Z95.810 Presence of automatic (implantable) cardiac defibrillator

== ENCOUNTER → 2017-10-08 | Outpatient (CLI) | payer MEDICARE, OTHER ==
[~2017-10-08] MED LIST changes: +ATORVASTATIN CA40 MG PO; +CARAFATE 1 GM TA1 G1 PO; +CARAFATE 11 GM/10 M1 PO; +CARVEDILOL3.125 MG PO; +DILTIAZEM 24HR180 M1 PO; +MULTAQ400 MG PO; +MULTI VITAMIN1 EACH PO; +PANTOPRAZOLE SO40 M1 PO
[2017-10-08 11:50] LABS: ALBUMIN 3.8 g/dL (3.4-5.0); ALKALINE PHOSPHATASE 79 U/L (46-116); CHOLESTEROL 198 mg/dL (<200); DIRECT BILIRUBIN 0.2 mg/dL (<0.1-0.3); HDL CHOLESTEROL 57 mg/dL (>40); LDL CHOLESTEROL 119 mg/dL (<100); SERUM ASSESSMENT Clear; SGOT 24 U/L (15-37); SGPT 24 U/L (30-65); TC:HDL 3.5 Ratio (Not establshd); TOTAL BILIRUBIN 0.5 mg/dL (<0.1-1.0); TOTAL PROTEIN 7.6 g/dL (6.4-8.2); TRIGLYCERIDE 112 mg/dL (<150); VLDL 22 mg/dL (<40)
== END ==
LOC: M.LAB 10:50
PROVIDERS: Internal Medicine Cardiovascular Disease
DX: E78.5 Hyperlipidemia, unspecified (principal); I42.0 Dilated cardiomyopathy; I50.22 Chronic systolic (congestive) heart failure

== ENCOUNTER → 2017-10-26 | Outpatient (CLI) | payer MEDICARE, OTHER ==
[2017-10-26 10:53] LABS: ABSOLUTE BASOPHILS 0.1 thou/uL (0.0-0.2); ABSOLUTE EOSINOPHILS 0.1 thou/uL (0.0-0.7); ABSOLUTE MONOCYTES 0.5 thou/uL (0.0-1.2); ABSOLUTE NEUTROPHILS 4.2 thou/uL (1.6-8.1); BASOPHILS 1.1 %; EOSINOPHILS 1.8 %; HEMATOCRIT 41.3 % (37.0-47.0); HEMOGLOBIN 13.6 gm/dL (12.0-15.0); MCHC 32.9 g/dL (28.0-37.0); MCV 91.3 fL (80.0-100.0); MONOCYTES 7.8 %; MPV 8.1 fl. (7.2-11.1); NUCLEATED RBCS 0 /100WBC; PLATELET COUNT* 285 thou/uL (150-400); POLYS 60.3 %; RBC 4.52 mil/uL (4.20-5.00); RDW-CV 14.1 % (10.5-14.5); WBC 6.9 thou/uL (4.0-11.0)
== END ==
LOC: M.LAB 10:35
PROVIDERS: Nurse Practitioner Family
DX: K92.1 Melena (principal); E78.5 Hyperlipidemia, unspecified; I42.0 Dilated cardiomyopathy; I50.22 Chronic systolic (congestive) heart failure

== ENCOUNTER → 2017-11-19 | Day surgery (SDC) | payer MEDICARE, OTHER ==
--- NOTE | ~2017-11-19 | PROC ---
[address] [address] PROCEDURE REPORT Name: FRANCISCO J FLOWERS Room: [facility].#: [id number] Admission: 11/19/17 Attend Phys: Tez Aguilar MD Discharge: Date of : 50 Report #: [id number] THIS REPORT FOR: //name// For GI report, please see the Provation report in Perceptive 7 content. By: 1007Medical Records Staff [facility] /CHARLES
[2017-11-19 10:57] LABS: HEMATOCRIT 40.2 % (37.0-47.0); HEMOGLOBIN 13.2 gm/dL (12.0-15.0); MCH 29.8 pg (26.0-34.0); MCHC 32.8 g/dL (28.0-37.0); MPV 8.6 fl. (7.2-11.1); RBC 4.42 mil/uL (4.20-5.00); WBC 7.4 thou/uL (4.0-11.0)
[2017-11-19 11:01] LABS: CALCIUM 9.5 mg/dL (8.5-10.1); CREATININE 0.8 mg/dL (0.6-1.3); POTASSIUM 4.1 mmol/L (3.5-5.1)
[2017-11-19 11:07] LABS: ALBUMIN 3.5 g/dL (3.4-5.0); TOTAL BILIRUBIN 0.6 mg/dL (<0.1-1.0); TOTAL PROTEIN 7.9 g/dL (6.4-8.2)
--- NOTE | 2017-11-21 16:07 | PATH ---
[address] [address] PATHOLOGY RPT PROCEDURE Name: FRANCISCO J SHAY Room: [facility]..#: [id number] Admission: 11/19/17 Date of : 50 Discharge: Report #: [id number] Path Case #: [id number] [facility] Accession Number: [id number] . 01 Material submitted: . PART A: CECAL POLYP PART B: ASCENDING COLON POLYP PART C: TRANSVERSE COLON POLYP . 01 Clinical history: . Personal history of colon polyps, rectal bleeding, diverticulosis . 02 Diagnosis: A. Cecal polyp: - Tubular adenoma, negative for high-grade dysplasia. . B. Ascending colon polyp: - Tubular adenoma, negative for high-grade dysplasia. . C. Tissue submitted as "transverse colon polyp": - Mucoid debris without colonic epithelial tissues present. (URIAH:pit; 11/20/2017) QTP/11/20/2017 . 02 Electronically signed: . Alfonso Osborne MD, Pathologist NPI- [id number] . 01 Gross description: . A. Received in formalin labeled "Swati Shay, cecal polyp," are 4 segments of gross soft tissue measuring 0.8 x 0.6 x 0.1 cm in aggregate dimensions and ranging from 0.2 to 0.3 cm in maximum dimension. The specimen is submitted entirely in cassette A1. . B. Received in formalin labeled "Jaspal, Swati, ascending colon polyp," is a single segment of gross soft tissue measuring 0.6 cm in maximum dimension. The specimen is entirely submitted in cassette B1. . C. Received in formalin labeled "Swati Shay, transverse colon polyp," is light green vegetative material admixed with possible small fragments of gross soft tissue measuring approximately 2.8 x 1.6 x 0.1 cm in diameter. The specimen is filtered and entirely submitted in cassette C1. (TSD; 11/19/2017) TOB/TOB . 02 Pathologist provided ICD-10: D12.0, D12.2, Z86.010 . 02 [place] [address] PATHOLOGY RPT PROCEDURE Name: FRANCISCO J SHAY Room: [facility]#: [id number] Admission: 11/19/17 Date of : 50 Discharge: Report #: [id number] Path Case #: [id number] [facility] . [id number], [id number], [id number] Performed at: [address] [facility] [address], [place], [place] [address] MD Seven Pena MD Phone: [phone] Performed at: [address] [facility] [address] [place], [place] [id number] MD Alfonso Osborne MD Phone: [phone]
== END | disposition home or self-care (01) ==
LOC: M.SUR 07:08
PROVIDERS: Internal Medicine Gastroenterology
DX: D12.0 Benign neoplasm of cecum (principal); D12.2 Benign neoplasm of ascending colon; K63.89 Other specified diseases of intestine; K57.30 Diverticulosis of large intestine without perforation or abscess without bleeding; K64.8 Other hemorrhoids; K21.9 Gastro-esophageal reflux disease without esophagitis; I11.0 Hypertensive heart disease with heart failure; I50.9 Heart failure, unspecified; I25.10 Atherosclerotic heart disease of native coronary artery without angina pectoris; E78.5 Hyperlipidemia, unspecified; E66.09 Other obesity due to excess calories; Z90.49 Acquired absence of other specified parts of digestive tract; Z98.890 Other specified postprocedural states; Z95.0 Presence of cardiac pacemaker; Z95.5 Presence of coronary angioplasty implant and graft; Z79.899 Other long term (current) drug therapy; Z79.01 Long term (current) use of anticoagulants; Z86.010 Personal history of colon polyps; Z86.73 Personal history of transient ischemic attack (TIA), and cerebral infarction without residual deficits; Z80.0 Family history of malignant neoplasm of digestive organs

== ENCOUNTER → 2017-12-07 | Outpatient (CLI) | payer MEDICARE, OTHER ==
[2017-12-07 10:02] LABS: ABSOLUTE BASOPHILS 0.1 thou/uL (0.0-0.2); ABSOLUTE EOSINOPHILS 0.1 thou/uL (0.0-0.7); ABSOLUTE LYMPHOCYTES 1.9 thou/uL (0.8-5.3); ABSOLUTE MONOCYTES 0.5 thou/uL (0.0-1.2); ABSOLUTE NEUTROPHILS 4.2 thou/uL (1.6-8.1); BASOPHILS 0.8 %; EOSINOPHILS 1.8 %; HEMATOCRIT 40.7 % (37.0-47.0); HEMOGLOBIN 13.5 gm/dL (12.0-15.0); LYMPHOCYTES 27.9 %; MCH 30.2 pg (26.0-34.0); MCHC 33.2 g/dL (28.0-37.0); MONOCYTES 7.5 %; MPV 8.6 fl. (7.2-11.1); NUCLEATED RBCS 0 /100WBC; PLATELET COUNT* 275 thou/uL (150-400); RBC 4.47 mil/uL (4.20-5.00); RDW-CV 14.1 % (10.5-14.5); WBC 6.7 thou/uL (4.0-11.0)
[2017-12-07 10:10] LABS: ALBUMIN 3.5 g/dL (3.4-5.0); ALKALINE PHOSPHATASE 89 U/L (46-116); CHOLESTEROL 164 mg/dL (<200); DIRECT BILIRUBIN 0.1 mg/dL (<0.1-0.3); HDL CHOLESTEROL 58 mg/dL (>40); LDL CHOLESTEROL 90 mg/dL (<100); SERUM ASSESSMENT Clear; SGOT 21 U/L (15-37); SGPT 20 U/L (30-65); TC:HDL 2.8 Ratio (Not establshd); TOTAL BILIRUBIN 0.3 mg/dL (<0.1-1.0); TRIGLYCERIDE 83 mg/dL (<150); VLDL 17 mg/dL (<40)
== END ==
LOC: M.LAB 09:39
PROVIDERS: Nurse Practitioner Family
DX: E78.5 Hyperlipidemia, unspecified (principal); R53.83 Other fatigue

== ENCOUNTER → 2018-01-04 | Outpatient (CLI) | payer MEDICARE, OTHER ==
[2018-01-04] VITALS (9 sets, daily range): BP systolic 114–138; BP diastolic 59–92
--- NOTE | 2018-01-04 15:51 | TEE ---
[place] [address] TRANSESOPHAGEAL ECHOCARDIOGRAM Name: FRANCISCO J FLOWERS I Room: [facility]#: [id number] Admission: 01/04/18 Attend Phys: aMgdiel Mitchell, Discharge: Date of : 50 Date of Service: 01/04/18 1551 Report #: [id number] THIS REPORT FOR: //name// APPROVED REPORT Study performed: 01/04/2018 11:51:18 EXAM: Transesophageal Echocardiogram Patient Location: Out-Patient Status: routine BSA: 1.83 HR: 111 bpm BP: 135/73 mmHg Rhythm: Atrial Fibrillation Other Information Study Quality: Good Indications Atrial Fibrillation Pre-ablation Echo Enhancing Agent Indication: Rule out Shunt Agent(s) / Amount(s) Used: Agitated Saline 10 cc Procedure After obtaining informed consent, patient underwent transesophageal echo in the [employer]. Type of Sedation : Conscious Sedation Sedation was administered by Licha Kang RN. Sedation start time: 1149 Case end Time: 1203 Sedation was achieved intravenously with: Versed (3) Fentanyl (50) Transesophageal probe was inserted and advanced into esophagus without difficulty by Magdiel Mitchell MD, [facility]. Echo enhancement indication: R/O Septal defect. Echo enhancement agent administered: Agitated Saline The WESLEY was performed without complications. Throughout the procedure, the blood pressure, pulse oximetry, cardiac rhythm, and rate were monitored. The patient tolerated the procedure without adverse effects. Recovery from conscious sedation was uneventful [place] [address] TRANSESOPHAGEAL ECHOCARDIOGRAM Name: FRANCISCO J FLOWERS I [id number] Admission: 01/04/18 Attend Phys: Magdiel Mitchell, Discharge: Date of : 50 Date of Service: 01/04/18 1551 Report #: [id number] Left Ventricle The left ventricle is normal size. There is global hypokinesis of the left ventricle. There is normal left ventricular wall thickness. Left ventricular systolic function is severely decreased. LVEF is 30-35%. Right Ventricle The right ventricle is normal size. The right ventricular systolic function is normal. Atria Left atrium is moderately dilated. No thrombus is visualized in the left atrium or appendage. Interatrial septum is intact without evidence of ASD or PFO. The right atrium size is normal. Aortic Valve The aortic valve is normal in structure. Trace aortic regurgitation. There is no aortic valvular stenosis. Mitral Valve The mitral valve is normal in structure. Mild mitral regurgitation. No evidence of mitral valve stenosis. Tricuspid Valve The tricuspid valve is normal in structure. Mild tricuspid regurgitation. Pulmonic Valve The pulmonary valve is normal in structure. Great Vessels The aortic root is normal in size. Pericardium There is no pericardial effusion. <Conclusion> The left ventricle is normal size. There is normal left ventricular wall thickness. Left ventricular systolic function is severely decreased. LVEF is 30-35%. There is global hypokinesis of the left ventricle. Left atrium is moderately dilated. No thrombus is visualized in the left atrium or appendage. Interatrial septum is intact without evidence [place] [address] TRANSESOPHAGEAL ECHOCARDIOGRAM Name: FRANCISCO J FLOWERS I Room: [facility]#: [id number] Admission: 01/04/18 Attend Phys: Magdiel Mitchell, Discharge: Date of : 50 Date of Service: 01/04/181550 Report #: [id number] Trace aortic regurgitation. Mild mitral regurgitation. Mild tricuspid regurgitation. <ELECTRONICALLY SIGNED> By: Magdiel Mitchell MD, FACC 01/04/181550 50 50 Magdiel Mitchell MD, FACC /INF
== END | disposition home or self-care (01) ==
LOC: M.CL 10:58
DX: I08.3 Combined rheumatic disorders of mitral, aortic and tricuspid valves (principal); Z79.01 Long term (current) use of anticoagulants; Z86.73 Personal history of transient ischemic attack (TIA), and cerebral infarction without residual deficits; Z79.82 Long term (current) use of aspirin; Z79.899 Other long term (current) drug therapy; Z98.890 Other specified postprocedural states

== ENCOUNTER → 2018-01-17 | Outpatient (CLI) | payer MEDICARE, OTHER | LOC: M.RAD 11:31 | DX: M79.672 Pain in left foot (principal); M25.572 Pain in left ankle and joints of left foot; I10 Essential (primary) hypertension; I48.91 Unspecified atrial fibrillation; I25.10 Atherosclerotic heart disease of native coronary artery without angina pectoris; G47.33 Obstructive sleep apnea (adult) (pediatric); Z95.5 Presence of coronary angioplasty implant and graft ==

== ENCOUNTER 2018-02-08 13:20 | Inpatient (IN) | payer MEDICARE, OTHER ==
[~2018-02-08] VITALS: Ht 149.9 cm; Wt 94.6 kg
[~2018-02-08 13:20] MED LIST changes: -ATORVASTATIN CA40 MG PO; -CARAFATE 1 GM TA1 G1 PO; -CARAFATE 11 GM/10 M1 PO; -CARVEDILOL3.125 MG PO; -DILTIAZEM 24HR180 M1 PO; -PANTOPRAZOLE SO40 M1 PO
[2018-02-08 13:24] VITALS: BP 136/82
[2018-02-08] MEDS ORDERED: ATORVASTATIN CA40 MG PO (13:27)
[2018-02-08 13:53] LABS: ABSOLUTE BASOPHILS 0.1 thou/uL (0.0-0.2); ABSOLUTE EOSINOPHILS 0.2 thou/uL (0.0-0.7); ABSOLUTE LYMPHOCYTES 2.6 thou/uL (0.8-5.3); ABSOLUTE MONOCYTES 0.8 thou/uL (0.0-1.2); ABSOLUTE NEUTROPHILS 5.4 thou/uL (1.6-8.1); BASOPHILS 1.2 %; EOSINOPHILS 1.9 %; HEMATOCRIT 38.1 % (37.0-47.0); HEMOGLOBIN 12.7 gm/dL (12.0-15.0); LYMPHOCYTES 28.6 %; MCH 29.3 pg (26.0-34.0); MCHC 33.3 g/dL (28.0-37.0); MCV 87.9 fL (80.0-100.0); MONOCYTES 8.7 %; MPV 8.1 fl. (7.2-11.1); NUCLEATED RBCS 0 /100WBC; PLATELET COUNT* 326 thou/uL (150-400); POLYS 59.6 %; RBC 4.33 mil/uL (4.20-5.00); RDW-CV 14.1 % (10.5-14.5)
[2018-02-08 14:08] LABS: INR 1.1; PROTIME 11.6 Seconds (9.20-11.50)
[2018-02-08 14:44] LABS: ALBUMIN 3.2 g/dL (3.4-5.0); ALKALINE PHOSPHATASE 99 U/L (46-116); ANION GAP 9 mmol/L (7-16); BUN 15 mg/dL (7-18); CALCIUM 9.2 mg/dL (8.5-10.1); CHLORIDE 101 mmol/L (98-107); CO2 27 mmol/L (21-32); CREATININE 1.1 mg/dL (0.6-1.3); GLUCOSE 112 mg/dL (70-99); LIPASE 90 U/L (73-393); NT-PRO BRAIN NAT PEPTIDE 3368 pg/mL (<300); POTASSIUM 3.6 mmol/L (3.5-5.1); SGOT 20 U/L (15-37); SGPT 22 U/L (30-65); SODIUM 137 mmol/L (136-145); TOTAL BILIRUBIN 0.5 mg/dL (<0.1-1.0); TOTAL PROTEIN 7.7 g/dL (6.4-8.2); TROPONIN-I LEVEL <0.06 ng/mL (<0.06)
--- NOTE | 2018-02-08 14:51 | EKG ---
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 Stamper: МАРИЯ : 1950 Requested By: Uriel Cope Order Number: [id number] MD: Tommie Ku Measurements Intervals [place] Rate: 105 P: ND: QRS: -8 QRSD: 98 T: -49 QT: 320 QTc: 423 Interpretive Statements Atrial fib flutter with rapid response Ventricular premature complex Borderline repolarization abnormality Compared to ECG 09/26/2017 21:48:58 Ventricular premature complex(es) now present Sinus rhythm no longer present Electronically Signed On 02-08-2018 14:51:00 CDT by Tommie Ku [email or web address] <ELECTRONICALLY SIGNED> By: Tommie Ku MD, [facility] 02/08/18 1451 1325 1325 Tommie Ku MD, [facility] /EPI
[2018-02-08 15:26] VITALS: BP 96/74
[2018-02-08 15:34] VITALS: BP 117/69
--- NOTE | 2018-02-08 17:12 | NUR ---
PT. ARRIVED TO UNIT AT APPROX. 1525, DAUGHTER KATHERINE AT BEDSIDE. PT. A/OX4, VSS, MONITOR ON TRACING AFIB WITH RATES AROUND 110'S. PT. ARRIVED ON 2L, BUT REMOVED FOR COMFORT AND TOLERATING WELL. PT. STATES SHE HAD AN ABLATION AT [facility] ON 02/01, THE EVENING SHE ARRIVED HOME SHE STARTED HAVING CHEST ACHINESS AND NOT FEELING WELL. PT. ATTEMPTED TO FOLLOW UP WITH AT [facility], BUT WAS UNABLE TO GET INTO SEE HIM SO CAME TO ER. PT. ADMITTED WITH CARDIZEM GTT INFUSING AT 10MLS/HOUR. FULL ASSESSMENT AND ADMISSION PROCESS COMPLETED, REFER TO CHARTING. PT. ORIENTED TO ROOM/PROCEDURES. CALL LIGHT IN REACH, WILL CONTINUE WITH PLAN OF CARE.
[2018-02-08 19:45] VITALS: BP 105/57
[2018-02-09] VITALS: BP 108/60
[2018-02-09 04:00] VITALS: BP 112/65
--- NOTE | 2018-02-09 04:30 | NUR ---
END SHIFT: PT RESTED WELL. HAD ONE C/O DIAPHORESIS/CLAMMY FEELING. AFIB/AFLUTTER RANGING FROM 70'S-130'S. CARDIZEM GTT CURRENTLY RUNNING AT 10MG. PT HAS HAD C/O PAIN WITH SWALLOWING. ANY LIQUID OR SOLIDS BEING SWALLOWED CAUSE SEVERE PAIN IN EPIGASTRIC AREA. SAFETY PRECAUTIONS IN PLACE, VSS. CALL LIGHT IN REACH. WILL CONT TO MONITOR.
--- NOTE | 2018-02-09 06:43 | NUR ---
END SHIFT ADDENDUM: PT HAS HAD AN INCREASE IN PVC'S THIS AM, WITH RUNS OF 3-4 IN A ROW AT TIMES AND MORE FREQUENT IN GENERAL. THIS IS NEW. PT STATES SHE STILL HAVE EPIGASTRIC DISCOMFORT 1-07/21. WILL CONT TO MONITOR.
[2018-02-09 08:45] VITALS: BP 105/54
--- NOTE | 2018-02-09 08:45 | NUR ---
ASSUMED PT. CARE AND RECEIVED REPORT AT 0730. PT. A/OX4, VSS, MONITOR ON TRACNG AFIB PVC. PT. REPORTS EPIGASTRIC PAIN 2/10, WORSE WITH SWALLOWING. ON RA @ 95%. DENIES SOB/NAUSEA AT THIS TIME. FULL ASSESSMENT COMPLETED, REFER TO CHARTING. CARDIZEM GTT CONTINUES AT 10ML/HR. PT. SITTING UP IN BED, EATING BREAKFAST AND TOLERATING WELL. WILL CONTINUE WITH PLAN OF CARE.
[2018-02-09 11:34] VITALS: BP 104/78
[2018-02-09 15:42] VITALS: BP 135/92
--- NOTE | 2018-02-09 17:34 | NUR ---
PT. CHANGED TO PO CARDIZEM AND STARTED AN AMIODARONE GTT WELL. CONTINUES TO BE IN AFIB. WAS MAINTAINING A RATE <100 MOST OF THE DAY, BUT INCREASED TO 120'S AT APPROX. 1700. PT. GIVEN PO DOSE OF DILT. AT THIS TIME. NO OTHER CHANGES NOTED. PT. REPORTS MINOR RELIEF OF EPIGASTRIC PAIN WITH GI COCKTAIL, BUT NO FULL RELIEF AND PAIN CAME BACK. HOURLY ROUNDING COMPLETED THROUGH OUT THE DAY FOR PT. SAFETY.
[2018-02-09 19:50] VITALS: BP 128/79
[2018-02-10] VITALS: BP 118/73
[2018-02-10 04:00] VITALS: BP 114/46
[2018-02-10 05:11] LABS: HEMOGLOBIN 11.8 gm/dL (12.0-15.0); MCH 29.2 pg (26.0-34.0); MCHC 32.8 g/dL (28.0-37.0); MPV 9.1 fl. (7.2-11.1); RBC 4.04 mil/uL (4.20-5.00); RDW-CV 14.5 % (10.5-14.5); WBC 10.1 thou/uL (4.0-11.0)
[2018-02-10 05:16] LABS: CALCIUM 8.9 mg/dL (8.5-10.1); POTASSIUM 3.9 mmol/L (3.5-5.1)
--- NOTE | 2018-02-10 05:42 | NUR ---
A&O X4 CALM COOPERITVE. ADLIB IN ROOM. AFIB ON THE MONITOR. RA. WALI ALMENDAREZ. VITALS WNL. SEE MAR. SEE CHARTING. HOURLY ROUNDING FOR SAFETY.
[2018-02-10 07:45] VITALS: BP 108/93
--- NOTE | 2018-02-10 07:45 | NUR ---
ASSUMED PT. CARE AND RECEIVED REPORT AT 0730. PT. A/OX4, VSS, MONITOR ON TRACING AFIB. PT. RIGHT FOREARM IV RED/SWOLLEN. AMIO GTT STOPPED TO PLACE NEW IV IN LEFT AC AND RESTARTED. WARM COMPRESSION PLACED TO INFILTRATED SITE. FULL ASSESSMENT COMPLETED, REFER TO CHARTING. PT. CONTINUE TO C/O OF EPIGASTRIC PAIN. AND STATES SHE DID NOT SLEEP WELL DURING THE NIGHT. CALL LIGHT IN REACH, WILL CONTINUE WITH PLAN OF CARE.
[2018-02-10 11:44] VITALS: BP 131/68
[2018-02-10 15:53] VITALS: BP 133/89
[2018-02-10 19:50] VITALS: BP 116/82
[2018-02-11] VITALS: BP 105/59
[2018-02-11 04:00] VITALS: BP 101/35
[2018-02-11 05:11] LABS: HEMATOCRIT 36.7 % (37.0-47.0); HEMOGLOBIN 11.9 gm/dL (12.0-15.0); MCH 29.1 pg (26.0-34.0); MCHC 32.3 g/dL (28.0-37.0); MCV 90.1 fL (80.0-100.0); MPV 8.2 fl. (7.2-11.1); RBC 4.07 mil/uL (4.20-5.00); RDW-CV 14.8 % (10.5-14.5); WBC 7.8 thou/uL (4.0-11.0)
[2018-02-11 05:48] LABS: ANION GAP 8 mmol/L (7-16); BUN 16 mg/dL (7-18); CALCIUM 8.4 mg/dL (8.5-10.1); CHLORIDE 102 mmol/L (98-107); CO2 27 mmol/L (21-32); CREATININE 0.9 mg/dL (0.6-1.3); GLUCOSE 114 mg/dL (70-99); SODIUM 137 mmol/L (136-145); TROPONIN-I LEVEL <0.06 ng/mL (<0.06)
--- NOTE | 2018-02-11 07:00 | NUR ---
A&O X4 CALM COOPERITIVE. AFIB RATE CONTROLED ON MONITOR. ADLIB IN ROOM. VITALS WNL. RA. HOURLY ROUNDING FOR SAFETY. SEE MAR. SEE CHARTING.
[2018-02-11 07:40] VITALS: BP 122/99
--- NOTE | 2018-02-11 09:00 | NUR ---
ASSUMED PT. CARE AND RECEIVED REPORT AT 0730. PT A/OX4, VSS, MONITOR ON TRACING AFIB. PT. REPORTS PAIN 1/10 EPIGASTRIC. STATES SHE SLEPT WELL LAST NIGHT. ENCOURAGED UP TO CHAIR FOR BREAKFAST. CONTINUES ON AMIO GTT TO LEFT AC. RIGHT AC INFILTRATION SITE SHOWING IMPROVEMENT TODAY, REMAINS EDEMATOUS BUT NOT WARM TO THE TOUCH ANYMORE AND PT. REPORTS FEELING BETTER. FULL ASSESSMENT COMPLETED, REFER TO CHARTING. CALL LIGHT IN REACH, WILL CONTINUE WITH PLAN OF CARE.
[2018-02-11 12:07] VITALS: BP 108/66
[2018-02-11 16:01] VITALS: BP 112/68
--- NOTE | 2018-02-11 18:55 | NUR ---
PT. SWITCH OFF AMIO GTT TODAY. HAS GONE BACK UP TO 120'S HERE AND THERE FOR SHORT PERIODS OF TIME BUT NOT CONSISTANT, MAINLY REMAINING AROUND 100. CONTINUES TO BE AFIB. UP TO CHAIR MOST OF THE DAY, REMAINS IN GOOD SPIRITS. ULTRASOUND OF RIGHT ARM COMPLETED. PT. REPORTS IT IS FEELING BETTER. CONTINUES TO HAVE NAGGING EPIGASTRIC PAIN, 06/20. HOURLY ROUNDING COMPLETED THROUGH OUT THE DAY FOR PT. SAFETY.
[2018-02-11 19:40] VITALS: BP 123/67
[2018-02-12] VITALS (9 sets, daily range): BP systolic 97–130; BP diastolic 41–78
--- NOTE | 2018-02-12 07:33 | NUR ---
A&O X4 CALM COOPERITIVE, AFIB ON THE MONITOR. ADLIB IN THE ROOM. VITALS WNL. HOURLY ROUNDING FOR SAFETY
--- NOTE | 2018-02-12 08:51 | NUR ---
ASSUMED CARE OF PT THIS AM AROUND 714- PULMONOLOGIST IN PLACE ORDERED, TRACING A-FIB, RATE CONTROLED- UPON ASSESSMENT PT NOTED TO BE RESTING IN BED, WATCHING TV- PT A&O X4- CONTINENT OF BOWEL AND BLADDER- UP AD-ERIS WITH STEADY GAIT NOTED- LCTA, RESP EVEN AND UN-LABORED- VSS, O2 SAT 96% ON RA- ABDOMEN SOFT/ROUND/NON-TENDER, BS X4 QUADS- PT REPORTS LAST BM 02/11/18- TRACE EDEMA NOTED TO BLE- IV NOTED TO LEFT AC INTACT AND SL- PT C/O ESOPHAGITIS DISCOMFORT THIS AM- CALL LIGHT AND PERSONAL BELONGINGS WITH IN REACH- HOURLY ROUNDS IN PLACE R/T SAFETY/NEEDS- ALL NEEDS MET AT THIS TIME-WCTM
[2018-02-12] MEDS ORDERED: DILTIAZEM 24HR180 M1 PO (11:21)
[2018-02-12] MEDS ORDERED: CARVEDILOL3.125 MG PO (11:21)
[2018-02-12] MEDS ORDERED: CARAFATE 11 GM/10 M1 PO (11:21)
[2018-02-12] MEDS ORDERED: PANTOPRAZOLE SO40 M1 PO (11:21)
--- NOTE | 2018-02-12 16:52 | EKG ---
[place] [address] ELECTROCARDIOGRAM REPORT Name: FRANCISCO J FLOWERS I Room: [address] ADM IN .R.#: [id number] Admission: 02/08/18 Attend Phys: Sue Winkler MD Discharge: Date of : 50 Report #: [id number] THIS REPORT FOR: //name// 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: TEAGAN : 1950 Requested By: Magdiel Mitchell Order Number: [id number] [place] MD: Magdiel Mitchell Measurements Intervals [place] Rate: 67 P: 16 ND: 185 QRS: -7 QRSD: 97 T: 27 QT: 438 QTc: 463 Interpretive Statements Sinus rhythm Compared to ECG 02/08/2018 13:25:52 Ventricular premature complex(es) no longer present Electronically Signed On 02-12-2018 16:52:31 CDT by Magdiel Mitchell [email or web address] <ELECTRONICALLY SIGNED> By: Magdiel Mitchell MD, [facility] 02/12/18 1652 1520 1520 Magdiel Mitchell MD, [facility] /EPI
[2018-02-12] MEDS ORDERED: CARAFATE 1 GM TA1 G1 PO (17:05)
--- NOTE | 2018-02-12 17:36 | NUR ---
ORDERS RECIEVED PER FOR [facility] TO D/C THIS SHIFT TO HOME IF [facility] PER CARDIOLOGY- HERE TO SEE THIS SHIFT WITH ORDERS NOTED FOR CARDIOVERSION THEN [facility] TO D/C HOME- PT OFF UNIT THIS SHIFT AROUND 1400 AND RETURNED AROUND 1600- PT REPORTED TO HAVE CONVERTED TO SR WITH CARDIOVERSION OF 300J- PT RETURNED TO UNIT VSS- PT GIVEN TIME TO AWAKE- SPOKE WITH AGAIN PER PHONE AROUND 1630 WITH [facility] AGAIN RECIEVIED TO D/C TO HOME- IV TO LEFT AC D/C'D ALONG WITH GLASS LATHE OPERATOR PRIOR TO D/C- D/C TEACHING/EDUCATION GIVEN TO PT PRIOR TO D/C WITH ALL QUESTIONS AND CONCERNS ADDRESSED- WRITTEN EDUCATION ALONG WITH SCRIPTS PROVIDED TO PT PRIOR TO D/C- BELONGINGS PACKED AND ACCOUNTED FOR PER PT- PT CURRENLTY DRESSED IN ROOM AWAITTING RIDE FOR D/C- ALL NEEDS MET AT THIS TIME-WCTM
--- NOTE | 2018-02-20 16:55 | CARD ---
[address] [address] CARDIAC CATH REPORT Name: FRANCISCO J FLOWERS I Room: [address] IN .#: [id number] Admission: 02/08/18 Attend Phys: Sue Winkler MD Discharge: 02/12/18 Date of : 50 Report #: [id number] THIS REPORT FOR: //name// CC: Celestino Winkler DATE OF SERVICE: 02/12/2018 DATE OF PROCEDURE: 02/12/2018. PROCEDURE: DC cardioversion. INDICATION: Persistent atrial fibrillation. DESCRIPTION OF PROCEDURE: After informed consent was obtained, the patient was brought to the cardiac catheterization holding area. The patient was given intravenous Versed and fentanyl for adequate sedation. Once the patient was adequately sedated, she was cardioverted to normal sinus rhythm with a single biphasic shock of 300 joules. The patient tolerated the procedure well, without complication. IMPRESSION: 1. Persistent atrial fibrillation. 2. Successful Direct Current cardioversion to normal sinus rhythm. <ELECTRONICALLY SIGNED> By: Magdiel Mitchell MD, FACC 02/20/18 1655 1614 [id number] Mitchell MD, FACC /nt
[2018-03-08] MEDS ORDERED: COREG6.25 MG PO (12:31)
[2018-03-08] MEDS ORDERED: FISH OIL 1,001000 M2 PO (12:34)
[2018-03-08] MEDS ORDERED: PEPCID20 MG PO (12:34)
[2018-03-08] MEDS ORDERED: LASIX 20 MG TAB20 MG PO (12:35)
== END 2018-02-12 18:53 | disposition home or self-care (01) | DRG 309 ==
LOC: M.ERS 13:20 → M.TBA-ER 14:02 → M.2W 14:02
PROVIDERS: Emergency Medicine; ADMIT Internal Medicine
PROC: 5A2204Z Restoration of Cardiac Rhythm, Single (ICD-10-PCS; principal; 2018-02-12)
DX: I48.0 Paroxysmal atrial fibrillation (principal); I50.22 Chronic systolic (congestive) heart failure; I25.10 Atherosclerotic heart disease of native coronary artery without angina pectoris; I42.9 Cardiomyopathy, unspecified; I48.92 Unspecified atrial flutter; I11.0 Hypertensive heart disease with heart failure; G47.30 Sleep apnea, unspecified; K21.9 Gastro-esophageal reflux disease without esophagitis; E78.5 Hyperlipidemia, unspecified; Z95.5 Presence of coronary angioplasty implant and graft; Z87.891 Personal history of nicotine dependence; Z86.73 Personal history of transient ischemic attack (TIA), and cerebral infarction without residual deficits; Z95.810 Presence of automatic (implantable) cardiac defibrillator; Z90.49 Acquired absence of other specified parts of digestive tract; Z79.01 Long term (current) use of anticoagulants; Z79.82 Long term (current) use of aspirin; Z79.899 Other long term (current) drug therapy; Z88.8 Allergy status to other drugs, medicaments and biological substances

== ENCOUNTER → 2018-02-21 | Outpatient (CLI) | payer MEDICARE, OTHER ==
[~2018-02-21] MED LIST changes: +ATORVASTATIN CA40 MG PO; +CARAFATE 1 GM TA1 G1 PO; +CARAFATE 11 GM/10 M1 PO; +CARVEDILOL3.125 MG PO; +DILTIAZEM 24HR180 M1 PO; +PANTOPRAZOLE SO40 M1 PO
--- NOTE | 2018-02-21 15:47 | EKG ---
[place] [address] ELECTROCARDIOGRAM REPORT Name: FRANCISCO J FLOWERS I Room: [facility]#: [id number] Admission: 02/21/18 Attend Phys: Magdiel Mitchell MD Discharge: Date of : 50 Report #: [id number] THIS REPORT FOR: //name// [facility] Test Date: 2018-02-21 Test Time: 12:00:26 Pat Name: FRANCISCO J FLOWERS Department: Room: Gender: F Golf Course Architect: Jaz : 1950 Requested By: Magdiel Mitchell Order Number: [id number] [place] MD: Magdiel Mitchell Measurements Intervals [place] Rate: 51 P: -3 ND: 184 QRS: 9 QRSD: 102 T: 19 QT: 504 QTc: 465 Interpretive Statements Sinus rhythm Compared to ECG 02/12/2018 15:20:49 No significant changes Electronically Signed On 02-21-2018 15:47:25 CDT by Magdiel Mitchell [email or web address] <ELECTRONICALLY SIGNED> By: Magdiel Mitchell MD, [facility] 02/21/18 1547 1200 [facility] Magdiel Mitchell MD, FACC /EPI
== END | disposition home or self-care (01) ==
LOC: M.CL 11:30
DX: I48.91 Unspecified atrial fibrillation (principal); Z98.890 Other specified postprocedural states; Z79.01 Long term (current) use of anticoagulants; Z86.73 Personal history of transient ischemic attack (TIA), and cerebral infarction without residual deficits; Z88.8 Allergy status to other drugs, medicaments and biological substances; Z79.82 Long term (current) use of aspirin; Z79.899 Other long term (current) drug therapy

== ENCOUNTER → 2018-03-11 | Outpatient (CLI) | payer MEDICARE, OTHER | LOC: M.RAD 14:44 | DX: M79.671 Pain in right foot (principal); I10 Essential (primary) hypertension; G47.33 Obstructive sleep apnea (adult) (pediatric); I48.91 Unspecified atrial fibrillation; Z90.710 Acquired absence of both cervix and uterus; Z87.891 Personal history of nicotine dependence ==

== ENCOUNTER → 2018-09-18 | Outpatient (CLI) | payer MEDICARE, OTHER | LOC: M.RAD 11:42 | DX: M25.572 Pain in left ankle and joints of left foot (principal); M25.472 Effusion, left ankle ==

== ENCOUNTER 2018-10-06 16:55 | Inpatient (IN) | payer MEDICARE, OTHER ==
[~2018-10-06] VITALS: Ht 152.4 cm; Wt 94.3 kg
[2018-10-06 17:01] VITALS: BP 96/52
[2018-10-06] MEDS ORDERED: ATIVAN1 MG PO (17:24)
[2018-10-06] MEDS ORDERED: MOBIC15 MG PO (17:30)
[2018-10-06] MEDS ORDERED: TRIAMCINOLONE TOP (17:33)
[2018-10-06 17:35] LABS: HEMATOCRIT 33.3 % (37.0-47.0); HEMOGLOBIN 10.9 gm/dL (12.0-15.0); MCHC 32.6 g/dL (28.0-37.0); MPV 9.6 fl. (7.2-11.1); NUCLEATED RBCS 0 /100WBC; PLATELET COUNT* 246 thou/uL (150-400); RBC 3.87 mil/uL (4.20-5.00); WBC 17.3 thou/uL (4.0-11.0)
[2018-10-06 17:37] LABS: INR 1.1; PROTIME 11.5 Seconds (9.20-11.50)
[2018-10-06] MEDS ORDERED: TYLENOL325 MG PO (17:37)
[2018-10-06 17:44] LABS: ALBUMIN 2.7 g/dL (3.4-5.0); ALKALINE PHOSPHATASE 119 U/L (46-116); ANION GAP 7 mmol/L (7-16); BUN 38 mg/dL (7-18); CALCIUM 8.4 mg/dL (8.5-10.1); CHLORIDE 103 mmol/L (98-107); CO2 24 mmol/L (21-32); CREATININE 1.6 mg/dL (0.6-1.3); GLUCOSE 152 mg/dL (70-99); LIPASE 72 U/L (73-393); MAGNESIUM 1.7 mg/dL (1.8-2.4); NT-PRO BRAIN NAT PEPTIDE 4454 pg/mL (<300); POTASSIUM 5.2 mmol/L (3.5-5.1); SGOT 24 U/L (15-37); SGPT 24 U/L (30-65); SODIUM 134 mmol/L (136-145); TOTAL BILIRUBIN 0.7 mg/dL (<0.1-1.0); TOTAL PROTEIN 6.9 g/dL (6.4-8.2); TROPONIN-I LEVEL <0.06 ng/mL (<0.06)
[2018-10-06 18:05] LABS: ABSOLUTE EOSINOPHILS 0.2 thou/uL (0.0-0.7); ABSOLUTE LYMPHOCYTES 1.4 thou/uL (0.8-5.3); ABSOLUTE MONOCYTES 0.7 thou/uL (0.0-1.2); ABSOLUTE NEUTROPHILS 15.1 thou/uL (1.6-8.1)
[2018-10-06 18:06] LABS: PLATELET ESTIMATE ADEQUATE
[2018-10-06 21:03] VITALS: BP 113/80
[2018-10-06 21:30] VITALS: BP 142/57
[2018-10-06] MEDS ORDERED: CARAFATE 1 GM TA1 G1 PO (21:48)
[2018-10-06 23:44] VITALS: BP 130/52
[2018-10-07] VITALS: BP 124/59
[2018-10-07 04:00] VITALS: BP 96/54
[2018-10-07 05:28] LABS: INFLUENZA A ANTIGEN None Detected (None Detect); INFLUENZA B ANTIGEN None Detected (None Detect)
[2018-10-07 08:00] VITALS: BP 103/54
[2018-10-07 09:45] LABS: CALCIUM 8.6 mg/dL (8.5-10.1); CREATININE 1.2 mg/dL (0.6-1.3)
[2018-10-07 09:46] LABS: POTASSIUM 4.1 mmol/L (3.5-5.1)
--- NOTE | 2018-10-07 12:16 | EKG ---
[place] [address] ELECTROCARDIOGRAM REPORT Name: FRANCISCO J FLOWERS Room: [address] ADM IN .R.#: [id number] Admission: 10/06/18 Attend Phys: Marcello Brenner MD Discharge: Date of : 50 Report #: [id number] THIS REPORT FOR: //name// [facility] ED Test Date: 2018-10-06 Test Time: 17:02:08 Pat Name: FRANCISCO J FLOWERS Department: Room: [facility] Gender: F Analog Ic Design Engineer: Susan MCDUFFIE : 1950 Requested By: Svitlana Kingston Order Number: [id number] MD: Celestino Hooper Measurements Intervals [place] Rate: 71 P: CO: QRS: 6 QRSD: 101 T: -3 QT: 464 QTc: 505 Interpretive Statements Afib/flut and V-paced complexes No further analysis attempted due to paced rhythm Compared to ECG 02/21/2018 12:00:26 Sinus rhythm no longer present Electronically Signed On 10-07-2018 12:16:15 CDT by Celestino Hooper [email or web address] <ELECTRONICALLY SIGNED> By: Celestino Hooper MD, [facility] 10/07/18 1216 1702 170 Celestino Hooper MD, [facility] /EPI
--- NOTE | 2018-10-07 12:17 | EKG ---
[place] [address] ELECTROCARDIOGRAM REPORT Name: FRANCISCO J FLOWERS Room: [address] ADM IN [facility]#: [id number] Admission: 10/06/18 Attend Phys: Marcello Brenner MD Discharge: Date of : 50 Report #: [id number] THIS REPORT FOR: //name// [facility] ED Test Date: 2018-10-06 Test Time: 19:14:48 Pat Name: FRANCISCO J FLOWERS Department: Room: [facility] Gender: F Publications Editor: Susan BECK : 1950 Requested By: Svitlana Kingston Order Number: [id number] MD: Celestino Hooper Measurements Intervals [place] Rate: 78 P: RI: QRS: 19 QRSD: 91 T: 22 QT: 404 QTc: 461 Interpretive Statements Atrial fibrillation Abnormal T, consider ischemia, anterior leads Compared to ECG 02/21/2018 12:00:26 paced beats no longer seen Electronically Signed On 10-07-2018 12:17:46 CDT by Celestino Hooper [email or web address] <ELECTRONICALLY SIGNED> By: Celestino Hooper MD, [facility]AC 10/07/18 1217 13 13 Celestino Hooper MD, [facility] /EPI
[2018-10-07 12:21] VITALS: BP 113/60
[2018-10-07 12:35] LABS: URINE BILIRUBIN NEGATIVE (Negative); URINE BLOOD 1+ (Negative); URINE CLARITY CLEAR; URINE COLOR YELLOW; URINE GLUCOSE-RANDOM NEGATIVE (Negative); URINE KETONES NEGATIVE (Negative); URINE LEUKOCYTES-REFLEX TRACE (Negative); URINE PROTEIN TRACE (Negative); URINE SPECIFIC GRAVITY 1.025 (1.005-1.030); URINE UROBILINOGEN 0.2 E.U./dl (0.2-1.0)
[2018-10-07 12:39] LABS: URINE NITRITE-REFLEX POSITIVE (Negative)
[2018-10-07 13:02] LABS: BACTERIA-REFLEX 1-9 Few /HPF (None Seen); CASTS None Seen /LPF (None Seen); CRYSTALS None Seen /LPF (None Seen); MUCUS None Seen strn/LPF (None Seen); SQUAMOUS 0-3 Few /LPF (0-3); URINE RBC 3-10 Few /HPF (0-2); URINE WBC-REFLEX 6-15 Few /HPF (0-5)
[2018-10-07 14:30] VITALS: BP 118/61
[2018-10-07 20:08] VITALS: BP 119/71
[2018-10-08] VITALS: BP 113/62
[2018-10-08 03:53] VITALS: BP 127/66
[2018-10-08 08:00] VITALS: BP 110/65
[2018-10-08 12:11] VITALS: BP 126/58
[2018-10-08 12:28] VITALS: BP 117/70
--- NOTE | 2018-10-08 15:53 | CON ---
[address] [address] CONSULTATION Name: FRANCISCO J FLOWERS Room: [address] ADM IN M.R.#: [id number] Admission: 10/06/18 Attend Phys: Marcello Brenner MD Discharge: Date of : 50 Report #: [id number] THIS REPORT FOR: //name// CC: Marcello Finley MD DATE OF SERVICE: 10/07/2018 HISTORY OF PRESENT ILLNESS: The patient is a 68-year-old, single Latin-Slovenian female who I saw in the hospital after she complained of chest pain. The patient has an extensive and complicated past medical history. She had previous coronary stenting at [facility] years ago. She has a history of a dilated cardiomyopathy. She has a history of paroxysmal atrial fibrillation. She has apparently been ablated twice in the past at [facility]. It was finally decided to aim for rate control and chronic anticoagulation. She has been followed by my partner, Dr. Mitchell. She has a known ejection fraction of 35%. Apparently a year ago, Dr. Mitchell implanted an ICD for primary prevention. He actually just saw her in August. At that time, she had no significant complaints. Apparently over the weekend, she was in [place] and had an episode where she felt lightheaded, went to the Emergency Room. The rate of her atrial fibrillation was increased. They increased her Coreg to 25 mg twice a day. She notes that yesterday she was at home when she felt some chest pain. She felt short of breath. There is no radiation of the pain. Denied any belching, coughing. The pain was not related to trauma. She denied any nausea. She came to the hospital, was admitted. I am asked to see her. She denied any leg pain. PAST MEDICAL HISTORY: She has had previous appendectomy, carpal tunnel surgery, cholecystectomy. She has sleep apnea. She has hypertension and hyperlipidemia. MEDICATIONS: Include Eliquis, aspirin, Lipitor, carvedilol, diltiazem, Lasix, isosorbide, Protonix, sucralfate. ALLERGIES: She has a previous INTOLERANCE TO AMIODARONE and CHANTIX. FAMILY HISTORY: Positive for heart disease. SOCIAL HISTORY: She is , lives with a daughter in [place]. Quit smoking years ago. No alcohol abuse. REVIEW OF SYSTEMS: She has had apparently a previous stroke with some memory loss the past. She has a history of asthma. No history of peptic ulcer disease, liver disease, kidney disease, cancer, psychiatric illness, [place] [address] CONSULTATION Name: FRANCISCO J FLOWERS Room: [address] IN ..#: [id number] Admission: 10/06/18 Attend Phys: Marcello Brenner MD Discharge: Date of : 50 Report #: [id number] PHYSICAL EXAMINATION: GENERAL: Revealed an elderly Latin-Slovenian female who appeared in no distress. VITAL SIGNS: Blood pressure 110/60, pulse is 70. She was afebrile. HEENT: She was anicteric, conjunctiva pink. Mucous membranes moist. NECK: Veins do not appear distended. No carotid bruits. CHEST: Clear to auscultation. HEART: Irregular rhythm. ABDOMEN: Obese. EXTREMITIES: Had no pitting edema. Dorsalis pedis pulse 1+ bilaterally. SKIN: Warm and dry. RADIOLOGICAL DATA: ECG on admission showed atrial fibrillation, occasional paced beat, nonspecific ST and T-wave change noted. Her workup in the Emergency Room, she had a chest x-ray yesterday that showed normal heart size and clear lung monsalve. LABORATORY DATA: Sodium 140, BUN 30, creatinine 1.2, glucose 119. Liver function studies were normal. Troponins were all 0.06. BNP 4454. LDL in last summer was 90. TSH was 0.796. White blood cell count 17.3, hemoglobin 10.9. She had an echocardiogram a year ago that showed ejection fraction 35%, left atrial enlargement, mild mitral regurgitation. She had previous cardiac catheterization by Dr. Ku in June 2015, which is now 3 years ago that showed coronary artery disease. She had a drug-eluting stent placed at the 90% stenosis at the LAD, drug-eluting stent in the first diagonal artery. Cardiac catheterization at that time was actually performed by Dr. Terrazas which showed in-stent restenosis of the LAD and another high-grade stenosis of the LAD and actually preserved left ventricular function. IMPRESSION AND RECOMMENDATIONS: 1. Chest pain. Possible unstable angina. Recommend nuclear stress test. 2. Cardiomyopathy. The patient has been on a beta norbert. I would consider adding an ARB. 3. Hypertension. The patient is on a beta-norbert and calcium norbert. 4. Atrial fibrillation. Rate controlled with calcium norbert and beta norbert. The patient has been anticoagulated. 5. Sleep apnea. The patient uses CPAP. 6. Previous stroke. The patient has been chronically anticoagulated. 7. Previous tobacco abuse. 8. Previous implantation of defibrillator. <ELECTRONICALLY SIGNED> By: Celestino Hooper MD, [facility] 10/08/18 1553 1744 [id number] Sarwat Hooper MD, FACC /nt
[2018-10-08 19:50] VITALS: BP 116/65
[2018-10-09] VITALS: BP 115/66
[2018-10-09 04:00] VITALS: BP 109/76
[2018-10-09 08:00] VITALS: BP 126/90
[2018-10-09 10:25] LABS: ABSOLUTE BASOPHILS 0.1 thou/uL (0.0-0.2); ABSOLUTE EOSINOPHILS 0.1 thou/uL (0.0-0.7); ABSOLUTE LYMPHOCYTES 1.1 thou/uL (0.8-5.3); ABSOLUTE MONOCYTES 0.8 thou/uL (0.0-1.2); ABSOLUTE NEUTROPHILS 4.5 thou/uL (1.6-8.1); BASOPHILS 0.8 %; EOSINOPHILS 1.2 %; HEMATOCRIT 32.4 % (37.0-47.0); HEMOGLOBIN 10.6 gm/dL (12.0-15.0); LYMPHOCYTES 16.4 %; MCH 27.9 pg (26.0-34.0); MCHC 32.7 g/dL (28.0-37.0); MCV 85.3 fL (80.0-100.0); MONOCYTES 12.1 %; MPV 9.3 fl. (7.2-11.1); NUCLEATED RBCS 0 /100WBC; PLATELET COUNT* 241 thou/uL (150-400); POLYS 69.5 %; RDW-CV 15.7 % (10.5-14.5); WBC 6.4 thou/uL (4.0-11.0)
[2018-10-09 10:38] LABS: ALBUMIN 2.4 g/dL (3.4-5.0); CALCIUM 8.6 mg/dL (8.5-10.1); CREATININE 0.9 mg/dL (0.6-1.3); POTASSIUM 3.8 mmol/L (3.5-5.1); TOTAL BILIRUBIN 0.4 mg/dL (<0.1-1.0); TOTAL PROTEIN 6.8 g/dL (6.4-8.2)
[2018-10-09 16:16] VITALS: BP 98/55
--- NOTE | 2018-10-09 17:08 | CARDNUC ---
[place] [address] CARDIAC NUCLEAR IMAGING REPORT Name: FRANCISCO J FLOWERS Room: [address] IN [facility]#: [id number] Admission: 10/06/18 Attend Phys: Marcello Brenner, Discharge: Date of : 50 Date of Service: 10/09/18 1708 Report #: [id number] THIS REPORT FOR: //name// APPROVED REPORT Study performed: 10/08/2018 16:33:53 Exam: Nuclear Stress Test Indication: Chest pain, Dyspnea, Cardiomyopathy Patient Location: In-Patient Room #: 209 Stress Tech: Torie Hightower Stress Nurse: Lisa Zhang RN NM Tech:KARELY Kwong Ht: 5 ft 0 in Wt: 198 lbs BSA: 1.86 m2 HR: 93 bpm BP: 116/73 mmHg BMI: 38.66 Rhythm: Atrial Fibrillation Medical History Medical History: CHF, Atrial Fibrillation, Stroke/TIA Medications: Carvedilol, Aspirin, Atorvastatin, Nitroglycerin, Imdur, Cardizem Allergies: Guaifenesin, Phenylephrine, Carbetapentane Cardiac Risk Factors: Age, HTN, Hyperlipidemia, Tobacco History (Former), FHX of CAD Previous Cardiac Procedures: CABG, PCI Stress Test Details Stress Test: Pharmacologic stress testing performed using 0.4 mg of regadenoson per 5 mL given IV over 10 seconds. Reason for pharmacologic stress test: physical limitation. HR Resting HR: 93 bpm Max Heart Rate (APMHR): 152 bpm Max HR Achieved: 119 bpm Target HR (85% APMHR): 129 bpm % of APMHR: 78 Recovery HR: 98 bpm HR response to stress: Normal HR response to stress BP Resting BP: 116/73 mmHg Max BP: 130/60 [place] [address] CARDIAC NUCLEAR IMAGING REPORT Name: FRANCISCO J FLOWERS Room: [address]#: [id number] Admission: 10/06/18 Attend Phys: Marcello Brenner, Discharge: Date of : 50 Date of Service: 10/09/18 1708 Report #: [id number] BP response to stress: Normal blood pressure response to stress. ECG Resting ECG: AF, otherwise normal ECG Stress ECG: AF, otherwise normal ECG ST Change: None Recovery ECG: AF, otherwise normal ECG Recovery ST Change: None Clinical Reason for Termination: Completed protocol Stress Symptoms: None The patient tolerated Lexiscan infusion without significant cardiac symptoms. Stress ECG Conclusion The baseline 12-lead EKG shows atrial fibrillation without significant ST segment abnormality. EKGs obtained during and post Lexiscan infusion show atrial fibrillation with no significant ST or T wave changes when compared to baseline. NM EXAM: Myocardial Perfusion REST/STRESS Resting Data Rest SPECT myocardial perfusion imaging was performed in supine position 30 minutes following the intravenous injection of 42.0 mCi of Tc-99m Sestamibi. Time of rest injection: 1005 Date: 10/09/2018 The images were gated to evaluate regional wall motion and calculate left ventricular ejection fraction. Administration Route: IV Pharmacologic Stress Pharmacologic stress test was performed by injecting Regadenoson 0.4 mg IV push followed by the intravenous injection of 36.2 mCi of Tc-99m Sestamibi. Time of stress injection: 1645 Date: 10/08/2018 Administration Route: IV Gated Stress SPECT was performed 40 minutes after stress injection. The images were gated to evaluate regional wall motion and calculate left ventricular ejection fraction. Stress only was performed in the Supine position. Study Quality Study: [place] [address] CARDIAC NUCLEAR IMAGING REPORT Name: FRANCISCO J FLOWERS Room: [address]#: [id number] Admission: 10/06/18 Attend Phys: Marcello Brenner, Discharge: Date of : 50 Date of Service: 10/09/18 1708 Report #: [id number] Artifact: Mild Diaphragmatic artifact Study Data At rest, the left ventricular ejection fraction was 38%.. Post stress, the left ventricular ejection was 38%.. TID = 1.05. Perfusion Perfusion images obtained at rest show photopenia in the inferior wall that resolves with post stress imaging. This suggests diaphragmatic attenuation artifact. Post stress images show no significant defect to suggest infarct or ischemia. Wall Motion There is severe global hypokinesis. Nuclear Conclusion ECG Findings: negative for ischemia Clinical Findings: negative for ischemia Nuclear Findings: negative for ischemia Exercise Capacity: not assessed Left Ventricular Function: abnormal Risk Study: moderate Perfusion images show no defect to suggest infarct or ischemia. There is severe global LV systolic dysfunction consistent with underlying cardiomyopathy. This is at least a moderate risk study based on left ventricular systolic dysfunction. <Conclusion> The baseline 12-lead EKG shows atrial fibrillation without significant ST segment abnormality. EKGs obtained during and post Lexiscan infusion show atrial fibrillation with no significant ST or T wave changes when compared to baseline. <ELECTRONICALLY SIGNED> By: Magdiel Mitchell MD, FACC 10/09/18 1708 07 07 Magdiel Mitchell MD, FACC /INF
[2018-10-09 20:00] VITALS: BP 140/81
[2018-10-10] VITALS (7 sets, daily range): BP systolic 94–142; BP diastolic 38–77
[2018-10-10 04:20] LABS: ABSOLUTE BASOPHILS 0.1 thou/uL (0.0-0.2); ABSOLUTE EOSINOPHILS 0.1 thou/uL (0.0-0.7); ABSOLUTE LYMPHOCYTES 1.4 thou/uL (0.8-5.3); ABSOLUTE MONOCYTES 1.1 thou/uL (0.0-1.2); ABSOLUTE NEUTROPHILS 4.1 thou/uL (1.6-8.1); BASOPHILS 0.8 %; EOSINOPHILS 2.2 %; HEMOGLOBIN 10.1 gm/dL (12.0-15.0); LYMPHOCYTES 20.5 %; MCH 27.7 pg (26.0-34.0); MCHC 32.8 g/dL (28.0-37.0); MCV 84.7 fL (80.0-100.0); MONOCYTES 16.3 %; MPV 8.9 fl. (7.2-11.1); NUCLEATED RBCS 0 /100WBC; PLATELET COUNT* 252 thou/uL (150-400); POLYS 60.2 %; RBC 3.66 mil/uL (4.20-5.00); RDW-CV 16.1 % (10.5-14.5); WBC 6.8 thou/uL (4.0-11.0)
[2018-10-10 04:38] LABS: CALCIUM 8.8 mg/dL (8.5-10.1); CREATININE 0.8 mg/dL (0.6-1.3); POTASSIUM 3.4 mmol/L (3.5-5.1)
[2018-10-10 04:39] LABS: PREALBUMIN 10.7 mg/dL (18.0-35.7)
--- NOTE | 2018-10-10 11:08 | CON ---
[address] [address] CONSULTATION Name: FRANCISCO J FLOWERS Room: [address] IN M.R.#: [id number] Admission: 10/06/18 Attend Phys: Marcello Brenner MD Discharge: Date of : 50 Report #: [id number] THIS REPORT FOR: //name// CC: Marcello Tirado [facility] DATE OF SERVICE: 10/09/2018 INFECTIOUS DISEASE CONSULTATION: ATTENDING PHYSICIAN: Marcello Brenner MD. REASON FOR EVALUATION: Gram-negative septicemia. HISTORY OF PRESENT ILLNESS: Chart reviewed, patient examined. This is a 68-year-old with a known history of vasculopathy, has significant coronary artery disease, who was admitted to the Emergency Room with complaints of chest pain. It is notable, she had been evaluated within the few days, had a recurrence and at that point was found to have tachy dysrhythmias, did experience some nausea as well. As part of the workup, blood cultures were collected as well as urinalysis. The latter showed evidence of moderate pyuria. The former now with growth of Gram-negative rods. Denies significant difficulties urinating, although she does have intermittent lower abdominal pain, although no particular flank pain. She is post-cholecystectomy as well. She is undergoing cardiac evaluation. At this point, she feels somewhat better and has been started empirically on ceftriaxone. She is not encephalopathic. Denies any significant pulmonary-related complaints. ALLERGIES: GUAIFENESIN, PHENYLEPHRINE, CARBETAPENTANE. CURRENT MEDICATIONS: Include furosemide, aspirin, carvedilol, p.r.n. analgesics, antiemetics, nitroglycerin, isosorbide mononitrate, atorvastatin, ceftriaxone, diltiazem CD. PAST MEDICAL HISTORY: As described above, history of hypertension, previous stroke, atrial fibrillation, sleep apnea requiring CPAP, does have a defibrillator, appendectomy, cholecystectomy. SOCIAL HISTORY: Nonsmoker, no ethanol. FAMILY HISTORY: Noncontributory. REVIEW OF SYSTEMS: Otherwise, unremarkable 10-point review of systems unless otherwise noted above in the history of present illness. PHYSICAL EXAMINATION: [place] [address] CONSULTATION Name: FRANCISCO J FLOWERS Room: [address]#: [id number] Admission: 10/06/18 Attend Phys: Marcello Brenner MD Discharge: Date of : 50 Report #: [id number] GENERAL: She is pleasant, alert, cooperative. She appears somewhat chronically ill, reasonably nourished. She is in tmre-mc-cfuvzdsu distress. VITAL SIGNS: Temperature 98.8, pulse 103, respirations 18, blood pressure 126/90. SKIN: Warm, dry, no rashes. HEENT: Normocephalic. Extraocular muscles intact. NECK: Supple. LUNGS: Generally clear to auscultation. HEART: Regular. Borderline tachycardic. I do not appreciate a murmur. ABDOMEN: Soft, nontender. There is no really abdominal tenderness. There is no CVA tenderness. There are no peritoneal signs. GENITOURINARY AND RECTAL: Deferred. LABORATORY DATA: Chest x-ray on admission showed no acute cardiopulmonary changes. Electrolytes initially sodium 134, potassium 5.2, chloride 103, bicarbonate is 24, anion gap of 7, BUN and creatinine 38 and 1.6. LFTs generally unremarkable. Albumin of 2.7, total protein of 6.9. Estimated GFR of 32. Repeat albumin 2.4. Creatinine is 0.9. CBC: White count of 6.4, down from 17.3 on admission; H and H was 10.9 and 33.3, now 10.6 and 32.4, platelets 241. Urine culture shows less than ten to the fourth CFUs. Blood culture growth of Gram-negative rods. Urinalysis 6-15 white cells, 1-9 bacteria. Influenza antigen was negative. ASSESSMENT AND PLAN: 1. Gram-negative septicemia. It is not entirely clear. Discussed with the family. She does have a history of recurrent urinary tract infections which would seem less likely etiology, really does not have significant abdominal-related complaints, although that certainly would be the potential source from a GI or , biliary tract seems less likely, cannot entirely exclude a food borne gram-negative. We will continue ceftriaxone, single dose of gentamicin pending those results. This may well lead us back to where the original source was, we will plan on likely transition to oral antibiotics prior to discharge in a 2-week course total. <ELECTRONICALLY SIGNED> By: Leroy Nevarez MD 10/10/18 1108 1622 0600Leroy Nevarez MD /nt
[2018-10-11 00:13] VITALS: BP 127/72
[2018-10-11 02:54] VITALS: BP 117/63
[2018-10-11 07:39] VITALS: BP 155/84
[2018-10-11 12:13] VITALS: BP 115/59
[2018-10-11 16:00] VITALS: BP 98/54
[2018-10-11 20:00] VITALS: BP 108/60
[2018-10-12] VITALS: BP 125/73
[2018-10-12 04:00] VITALS: BP 114/68
[2018-10-12 05:25] LABS: ABSOLUTE BASOPHILS 0.1 thou/uL (0.0-0.2); ABSOLUTE EOSINOPHILS 0.3 thou/uL (0.0-0.7); ABSOLUTE NEUTROPHILS 6.1 thou/uL (1.6-8.1); BASOPHILS 0.9 %; EOSINOPHILS 2.6 %; HEMATOCRIT 31.4 % (37.0-47.0); HEMOGLOBIN 10.5 gm/dL (12.0-15.0); LYMPHOCYTES 21.3 %; MCH 28.3 pg (26.0-34.0); MCHC 33.4 g/dL (28.0-37.0); MCV 84.7 fL (80.0-100.0); MONOCYTES 10.7 %; MPV 8.6 fl. (7.2-11.1); NUCLEATED RBCS 0 /100WBC; POLYS 64.5 %; RBC 3.71 mil/uL (4.20-5.00); RDW-CV 16.1 % (10.5-14.5); WBC 9.5 thou/uL (4.0-11.0)
[2018-10-12 05:27] LABS: ALBUMIN 2.5 g/dL (3.4-5.0); CALCIUM 9.2 mg/dL (8.5-10.1); CREATININE 0.9 mg/dL (0.6-1.3); POTASSIUM 4.3 mmol/L (3.5-5.1); TOTAL BILIRUBIN 0.2 mg/dL (<0.1-1.0); TOTAL PROTEIN 6.8 g/dL (6.4-8.2)
[2018-10-12 06:25] LABS: PLATELET COUNT* 334 thou/uL (150-400)
[2018-10-12 08:00] VITALS: BP 147/69
[2018-10-12 12:10] VITALS: BP 108/58
[2018-10-12] MEDS ORDERED: COREG25 MG PO (13:55)
[2018-10-12] MEDS ORDERED: CEFDINIR300 MG PO (14:59)
== END 2018-10-12 16:19 | disposition home or self-care (01) | DRG 871 ==
LOC: M.ERS 16:55 → M.2W 19:30 → M.TBA-ER 19:30 → M.2W 20:32
PROVIDERS: Internal Medicine; Personal Emergency Response Attendant; ADMIT Internal Medicine
DX: A41.50 Gram-negative sepsis, unspecified (principal); I50.43 Acute on chronic combined systolic (congestive) and diastolic (congestive) heart failure; I42.0 Dilated cardiomyopathy; N39.0 Urinary tract infection, site not specified; I11.0 Hypertensive heart disease with heart failure; I25.118 Atherosclerotic heart disease of native coronary artery with other forms of angina pectoris; E78.00 Pure hypercholesterolemia, unspecified; G47.33 Obstructive sleep apnea (adult) (pediatric); E11.9 Type 2 diabetes mellitus without complications; I48.0 Paroxysmal atrial fibrillation; Z95.5 Presence of coronary angioplasty implant and graft; Z86.73 Personal history of transient ischemic attack (TIA), and cerebral infarction without residual deficits; Z95.810 Presence of automatic (implantable) cardiac defibrillator; Z90.49 Acquired absence of other specified parts of digestive tract; Z87.891 Personal history of nicotine dependence; Z79.01 Long term (current) use of anticoagulants; Z79.82 Long term (current) use of aspirin; Z79.899 Other long term (current) drug therapy; Z88.8 Allergy status to other drugs, medicaments and biological substances; Z82.49 Family history of ischemic heart disease and other diseases of the circulatory system

== ENCOUNTER → 2018-12-25 | Outpatient (CLI) | payer MEDICARE, OTHER ==
[~2018-12-25] MED LIST changes: +CEFDINIR300 MG PO; +COREG25 MG PO; +TRIAMCINOLONE TOP
== END ==
LOC: M.ULTRA 07:58
DX: N20.0 Calculus of kidney (principal)

== ENCOUNTER → 2019-03-18 | Outpatient (CLI) | payer MEDICARE, OTHER ==
[2019-03-18 10:01] LABS: CHOLESTEROL 159 mg/dL (<200); HDL CHOLESTEROL 47 mg/dL (>40); LDL CHOLESTEROL 94 mg/dL (<100); TC:HDL 3.4 Ratio (Not establshd); TRIGLYCERIDE 92 mg/dL (<150); VLDL 18 mg/dL (<40)
[2019-03-18 10:02] LABS: SERUM ASSESSMENT Clear
== END ==
LOC: M.LAB 09:22
PROVIDERS: Internal Medicine Cardiovascular Disease
DX: E78.2 Mixed hyperlipidemia (principal)

== ENCOUNTER → 2019-07-02 | Outpatient (CLI) | payer MEDICARE, OTHER ==
--- NOTE | 2019-07-02 13:55 | 2DMMODE ---
[place] [address] 2 D/M-MODE ECHOCARDIOGRAM Name: FRANCISCO J FLOWERS Room: [facility]#: [id number] Admission: 07/02/19 Attend Phys: Celestino Finley, Discharge: Date of : 50 Date of Service: 07/02/19 1354 Report #: [id number] THIS REPORT FOR: //name// APPROVED REPORT Study performed: 07/02/2019 09:55:33 EXAM: Comprehensive 2D, Doppler, and color-flow Echocardiogram Patient Location: Out-Patient BSA: 1.82 HR: 76 bpm BP: 140/70 mmHg Other Information Study Quality: Good Indications Congestive Heart Failure Cardiomyopathy 2D Dimensions IVSd: 12.53 (7-11mm) LVOT Diam: 20.13 (18-24mm) LVDd: 54.16 mm PWd: 11.82 (7-11mm) Ascending Ao: 28.65 (22-36mm) LVDs: 35.90 (25-40mm) Aortic Root: 29.17 mm Volumes Left Atrial Volume (Systole) LA ESV Index: 40.90 mL/m2 Aortic Valve AoV Peak Jacky.: 0.95 m/s AO Peak Gr.: 3.59 mmHg LVOT Max P.53 mmHg AO Mean Gr.: 2.07 mmHg LVOT Mean P.73 mmHg LVOT Max V: 0.62 m/s AO V2 VTI: 17.09 cm LVOT Mean V: 0.39 m/s TALHA (VTI): 2.23 cm2 LVOT V1 VTI: 11.98 cm AI [place]: 1.36 m/s2 AI PHT: 774.18 ms Mitral Valve E/A Ratio: 4.87 MV Decel. Time: 157.47 [place] [address] 2 D/M-MODE ECHOCARDIOGRAM Name: FRANCISCO J FLOWERS Room: [facility]#: [id number] Admission: 07/02/19 Attend Phys: Celestino Finley, Discharge: Date of : 50 Date of Service: 07/02/19 1354 Report #: [id number] MV E Max Jacky.: 1.07 m/s MV PHT: 45.67 ms MVA (PHT): 4.82 cm2 TDI E/Lateral E': 7.13 E/Medial E': 7.64 Medial E' Jacky.: 0.14 m/s Lateral E' Jacky.: 0.15 m/s Pulmonary Valve PV Peak Jacky.: 0.83 m/s PV Peak Gr.: 2.74 mmHg Tricuspid Valve RAP Estimate: 5.00 mmHg TR Peak Gr.: 24.14 mmHg RVSP: 29.14 mmHg PA Pressure: 29.14 mmHg Left Ventricle The left ventricle is normal size. severe hypokinesis of the inferior wall Mild concentric left ventricular hypertrophy. Left ventricular systolic function is moderately decreased. LVEF is 30-35%. This study is not technically sufficient to allow evaluation of the LV diastolic function due to atrial fibrillation. Right Ventricle The right ventricle is normal size. The right ventricular systolic function is normal. Pacemaker lead is present in the right ventricle. Atria Left atrium is mildly dilated. The right atrium size is normal. Aortic Valve The aortic valve is normal in structure. Trace aortic regurgitation. There is no aortic valvular stenosis. Mitral Valve The mitral valve is normal in structure. Mild mitral regurgitation. No evidence of mitral valve stenosis. Tricuspid Valve The tricuspid valve is normal in structure. Mild tricuspid regurgitation. estimated pa pressure 35 mm Hg Pulmonic Valve The pulmonary valve is normal in structure[place] [address] 2 D/M-MODE ECHOCARDIOGRAM Name: FRANCISCO J FLOWERS Room: [facility]#: [id number] Admission: 07/02/19 Attend Phys: Celestino Finley, Discharge: Date of : 50 Date of Service: 07/02/19 1354 Report #: [id number] regurgitation. Great Vessels The aortic root is normal in size. IVC is normal in size and collapses >50% with inspiration. Pericardium There is no pericardial effusion. <Conclusion> Mild concentric left ventricular hypertrophy. LVEF is 30-35%. severe hypokinesis of the inferior wall Left atrium is mildly dilated. Mild mitral regurgitation. Mild tricuspid regurgitation. estimated pa pressure 35 mm Hg <ELECTRONICALLY SIGNED> By: Celestino Hooper MD, [facility] 07/02/19 1354 1354 1354 Celestino Hooper MD, FACC /INF
== END ==
LOC: M.CRD 09:00
DX: I08.8 Other rheumatic multiple valve diseases (principal); G47.33 Obstructive sleep apnea (adult) (pediatric); I95.0 Idiopathic hypotension; I42.0 Dilated cardiomyopathy; I25.5 Ischemic cardiomyopathy; I25.111 Atherosclerotic heart disease of native coronary artery with angina pectoris with documented spasm; I48.91 Unspecified atrial fibrillation; I50.9 Heart failure, unspecified

== ENCOUNTER 2019-12-20 18:32 | Emergency (ER) | payer MEDICARE, OTHER ==
[~2019-12-20] VITALS: Ht 162.6 cm; Wt 89.4 kg
[2019-12-20 19:07] LABS: ABSOLUTE BASOPHILS 0.1 thou/uL (0.0-0.2); ABSOLUTE EOSINOPHILS 0.2 thou/uL (0.0-0.7); ABSOLUTE MONOCYTES 0.7 thou/uL (0.0-1.2); ABSOLUTE NEUTROPHILS 6.3 thou/uL (1.6-8.1); EOSINOPHILS 2.6 %; HEMATOCRIT 32.9 % (37.0-47.0); HEMOGLOBIN 11.2 gm/dL (12.0-15.0); LYMPHOCYTES 21.3 %; MCH 27.4 pg (26.0-34.0); MCHC 33.9 g/dL (28.0-37.0); MCV 80.9 fL (80.0-100.0); MONOCYTES 7.2 %; MPV 8.1 fl. (7.2-11.1); NUCLEATED RBCS 0 /100WBC; PLATELET COUNT* 325 thou/uL (150-400); POLYS 67.9 %; RBC 4.07 mil/uL (4.20-5.00); WBC 9.3 thou/uL (4.0-11.0)
[2019-12-20 19:17] LABS: APTT 26.6 Seconds (25.0-31.3); CALCIUM 8.8 mg/dL (8.5-10.1); CREATININE 1.5 mg/dL (0.6-1.3); INR 1.1; POTASSIUM 3.3 mmol/L (3.5-5.1); PROTIME 11.2 Seconds (9.20-11.50)
[2019-12-20 19:21] LABS: ALBUMIN 3.1 g/dL (3.4-5.0); TOTAL BILIRUBIN 0.3 mg/dL (<0.1-1.0); TOTAL PROTEIN 7.3 g/dL (6.4-8.2)
[2019-12-20 20:56] LABS: URINE BILIRUBIN NEGATIVE (Negative); URINE BLOOD 3+ (Negative); URINE COLOR DARK YELLOW; URINE GLUCOSE-RANDOM NEGATIVE (Negative); URINE KETONES TRACE (Negative); URINE NITRITE-REFLEX NEGATIVE (Negative); URINE PROTEIN 2+ (Negative); URINE SPECIFIC GRAVITY 1.025 (1.005-1.030); URINE UROBILINOGEN 0.2 E.U./dl (0.2-1.0)
[2019-12-20 20:57] LABS: URINE LEUKOCYTES-REFLEX 2+ (Negative)
[2019-12-20 20:58] LABS: URINE CLARITY SL CLOUDY
[2019-12-20 21:08] LABS: URINE RBC >20 Many /HPF (0-2)
[2019-12-20 21:10] LABS: HYALINE CASTS >10 Many /LPF (None Seen); SQUAMOUS >10 Many /LPF (0-3)
[2019-12-20 21:11] LABS: BACTERIA-REFLEX 1-9 Few /HPF (None Seen); CRYSTALS None Seen /LPF (None Seen); URINE WBC-REFLEX 6-15 Few /HPF (0-5)
[2019-12-21] MEDS ORDERED: HYDROCODON-ACE1 EAC8 PO (00:08)
[2019-12-21] MEDS ORDERED: ZOFRAN ODT4 MG PO (00:08)
[2019-12-21 00:25] VITALS: BP 148/77
--- NOTE | 2019-12-21 12:38 | EKG ---
[place] [address] ELECTROCARDIOGRAM REPORT Name: FRANCISCO J FLOWERS Room: [facility]#: [id number] Admission: 12/20/19 Attend Phys: Discharge: 12/21/19 Date of : 50 Date of Service: 12/20/19 1850 Report #: [id number] THIS REPORT FOR: //name// [facility] ED Test Date: 2019-12-20 Test Time: 18:50:49 Pat Name: FRANCISCO J FLOWERS Department: Room: Gender: F [employer] Person: : 1950 Requested By: Travis Mederos Order Number: [id number] MD: Magdiel Mitchell Measurements Intervals [place] Rate: 74 P: MS: QRS: 7 QRSD: 122 T: -78 QT: 371 QTc: 412 Interpretive Statements Atrial fibrillation Occasional ventricular pacing Borderline repolarization abnormality Compared to ECG 10/06/2018 19:14:48 T-wave abnormality no longer present Possible ischemia no longer present Electronically Signed On 12-21-2019 12:38:19 CDT by Magdiel Mitchell [email or web address] <ELECTRONICALLY SIGNED> By: Magdiel Mitchell MD, FACC 12/21/19 1238 185 185 Magdiel Mitchell MD, [facility] /EPI
== END 2019-12-21 00:28 | disposition home or self-care (01) ==
LOC: M.ERS 18:32
PROVIDERS: Family Medicine
DX: S52.531A Colles' fracture of right radius, initial encounter for closed fracture (principal); S01.81XA Laceration without foreign body of other part of head, initial encounter; S01.412A Laceration without foreign body of left cheek and temporomandibular area, initial encounter; S60.222A Contusion of left hand, initial encounter; M54.2 Cervicalgia; I10 Essential (primary) hypertension; I25.10 Atherosclerotic heart disease of native coronary artery without angina pectoris; I48.91 Unspecified atrial fibrillation; G47.30 Sleep apnea, unspecified; Z95.5 Presence of coronary angioplasty implant and graft; Z90.49 Acquired absence of other specified parts of digestive tract; Z86.73 Personal history of transient ischemic attack (TIA), and cerebral infarction without residual deficits; Z87.891 Personal history of nicotine dependence; Z88.8 Allergy status to other drugs, medicaments and biological substances; W01.0XXA Fall on same level from slipping, tripping and stumbling without subsequent striking against object, initial encounter; Y93.89 Activity, other specified; Y92.89 Other specified places as the place of occurrence of the external cause; Y99.8 Other external cause status

== ENCOUNTER 2019-12-23 14:49 | Inpatient (IN) | payer MEDICARE, OTHER ==
[~2019-12-23] VITALS: Ht 160 cm; Wt 99.3 kg
[~2019-12-23 14:49] MED LIST changes: +Ativan 1 MG PO; +HYDROCODON-ACE1 EAC8 PO; +ZOFRAN ODT4 MG PO
[2019-12-23 14:55] VITALS: BP 88/51
[2019-12-23 15:35] LABS: ABSOLUTE BASOPHILS 0.1 thou/uL (0.0-0.2); ABSOLUTE EOSINOPHILS 0.3 thou/uL (0.0-0.7); ABSOLUTE LYMPHOCYTES 1.6 thou/uL (0.8-5.3); ABSOLUTE MONOCYTES 0.9 thou/uL (0.0-1.2); ABSOLUTE NEUTROPHILS 5.5 thou/uL (1.6-8.1); BASOPHILS 0.8 %; EOSINOPHILS 3.2 %; HEMATOCRIT 28.4 % (37.0-47.0); HEMOGLOBIN 9.5 gm/dL (12.0-15.0); LYMPHOCYTES 19.1 %; MCH 27.3 pg (26.0-34.0); MCHC 33.4 g/dL (28.0-37.0); MCV 81.8 fL (80.0-100.0); MONOCYTES 10.6 %; MPV 7.8 fl. (7.2-11.1); NUCLEATED RBCS 0 /100WBC; PLATELET COUNT* 268 thou/uL (150-400); POLYS 66.3 %; RBC 3.48 mil/uL (4.20-5.00); RDW-CV 17.4 % (10.5-14.5); WBC 8.3 thou/uL (4.0-11.0)
[2019-12-23 15:43] LABS: CALCIUM 8.5 mg/dL (8.5-10.1); CREATININE 2.3 mg/dL (0.6-1.3); POTASSIUM 3.6 mmol/L (3.5-5.1)
[2019-12-23 15:44] LABS: APTT 33.7 Seconds (25.0-31.3); INR 1.2; PROTIME 11.9 Seconds (9.20-11.50)
[2019-12-23 15:56] LABS: CK-MB MASS 2.1 ng/mL (<0.5-3.6); TOTAL BILIRUBIN 0.4 mg/dL (<0.1-1.0); TOTAL PROTEIN 7.2 g/dL (6.4-8.2)
[2019-12-23 17:40] LABS: URINE BILIRUBIN NEGATIVE (Negative); URINE BLOOD 3+ (Negative); URINE CLARITY SL CLOUDY; URINE COLOR YELLOW; URINE GLUCOSE-RANDOM NEGATIVE (Negative); URINE KETONES NEGATIVE (Negative); URINE LEUKOCYTES-REFLEX TRACE (Negative); URINE NITRITE-REFLEX NEGATIVE (Negative); URINE PROTEIN TRACE (Negative); URINE UROBILINOGEN 0.2 E.U./dl (0.2-1.0)
[2019-12-23 18:14] LABS: AMORPHOUS URATES Moderate /LPF (None Seen); HYALINE CASTS 0-3 Few /LPF (None Seen); SQUAMOUS 0-3 Few /LPF (0-3); URINE RBC >20 Many /HPF (0-2); URINE WBC-REFLEX 6-15 Few /HPF (0-5)
[2019-12-23 18:19] LABS: URINE POTASSIUM-RANDOM 16.7 mmol/L
[2019-12-23 18:51] LABS: BE -1.2 mmol/L (-2 to +3); PCO2 VENOUS 45.2 mmHg (41.0-51.0); PO2 VENOUS 37.7 mmHg (35.0-45.0)
[2019-12-23 19:05] LABS: % SATURATION 8 % (20-39); IRON 28 ug/dL (50-175)
[2019-12-23 21:20] VITALS: BP 129/59
[2019-12-23 22:00] VITALS: BP 153/66
[2019-12-23 23:47] VITALS: BP 149/71
[2019-12-24 04:21] VITALS: BP 126/65
[2019-12-24 04:29] LABS: HEMATOCRIT 28.9 % (37.0-47.0); HEMOGLOBIN 9.7 gm/dL (12.0-15.0); MCHC 33.5 g/dL (28.0-37.0); MCV 80.8 fL (80.0-100.0); MPV 8.1 fl. (7.2-11.1); RBC 3.57 mil/uL (4.20-5.00); RDW-CV 16.8 % (10.5-14.5); WBC 8.8 thou/uL (4.0-11.0)
[2019-12-24 04:37] LABS: CALCIUM 8.7 mg/dL (8.5-10.1); MAGNESIUM 2.2 mg/dL (1.8-2.4)
[2019-12-24 04:42] LABS: POTASSIUM 2.8 mmol/L (3.5-5.1)
[2019-12-24 04:43] LABS: CREATININE 1.3 mg/dL (0.6-1.3)
[2019-12-24 08:00] VITALS: BP 132/67
--- NOTE | 2019-12-24 10:38 | EKG ---
[place] [address] ELECTROCARDIOGRAM REPORT Name: FRANCISCO J FLOWERS Room: [address] ADM IN .R.#: [id number] Admission: 12/23/19 Attend Phys: Johan Kim, Discharge: Date of : 50 Date of Service: 12/23/19 1533 Report #: [id number] THIS REPORT FOR: //name// [facility] ED Test Date: 2019-12-23 Test Time: 15:33:27 Pat Name: FRANCISCO J FLOWERS Department: Room: [facility] Gender: F Language Path: CHEIKH : 1950 Requested By: Travis Mederos Order Number: [id number] MD: Celestino Hooper Measurements Intervals [place] Rate: 60 P: NC: QRS: 35 QRSD: 99 T: -11 QT: 412 QTc: 412 Interpretive Statements Afib/flut and V-paced complexes No further analysis attempted due to paced rhythm Compared to ECG 12/20/2019 18:50:49 No significant changes Electronically Signed On 12-24-2019 10:38:26 CDT by Celestino Hooper [email or web address] <ELECTRONICALLY SIGNED> By: Celestino Hooper MD, FAC 12/24/19 1038 1533 1533 Celestino Hooper MD, FAC /EPI
[2019-12-24 12:18] VITALS: BP 132/74
--- NOTE | 2019-12-24 15:41 | 2DMMODE ---
[place] [address] 2 D/M-MODE ECHOCARDIOGRAM Name: FRANCISCO J FLOWERS Room: [address] IN [facility]#: [id number] Admission: 12/23/19 Attend Phys: Johan Kim, Discharge: Date of : 50 Date of Service: 12/24/19 1541 Report #: [id number] THIS REPORT FOR: cc: Celestino Finley MD, David L. MD Blick, David R. MD [facility] ~ APPROVED REPORT Study performed: 12/24/2019 09:55:21 EXAM: Comprehensive 2D, Doppler, and color-flow Echocardiogram Patient Location: In-Patient Room #: 210 Status: routine BSA: 1.97 HR: 94 bpm BP: 132/67 mmHg Rhythm: Atrial Fibrillation Other Information Study Quality: Good Indications Dyspnea 2D Dimensions IVSd: 12.10 (7-11mm) LVOT Diam: 19.69 (18-24mm) LVDd: 47.57 mm PWd: 8.42 (7-11mm) Ascending Ao: 29.15 (22-36mm) LVDs: 37.90 (25-40mm) Aortic Root: 29.00 mm Volumes Left Atrial Volume (Systole) LA ESV Index: 66.20 mL/m2 Aortic Valve AoV Peak Jacky.: 1.26 m/s AO Peak Gr.: 6.34 mmHg LVOT Max P.14 mmHg AO Mean Gr.: 2.91 mmHg LVOT Mean P.58 mmHg LVOT Max V: 0.89 m/s AO V2 VTI: 21.09 cm LVOT Mean V: 0.58 m/s TALHA (VTI): 2.29 cm2 LVOT V1 VTI: 15.85 cm AI [place]: 2.48 m/s2 [place] [address] 2 D/M-MODE ECHOCARDIOGRAM Name: FRANCISCO J FLOWERS Room: [address] IN ..#: [id number] Admission: 12/23/19 Attend Phys: Johan Kim, Discharge: Date of : 50 Date of Service: 12/24/19 1541 Report #: [id number] AI PHT: 476.17 ms Mitral Valve MV Decel. Time: 129.19 ms MV PHT: 37.47 ms MVA (PHT): 5.87 cm2 TDI Medial E' Jacky.: 0.12 m/s Lateral E' Jacky.: 0.16 m/s Pulmonary Valve PV Peak Jacky.: 1.00 m/s PV Peak Gr.: 3.97 mmHg Tricuspid Valve RAP Estimate: 5.00 mmHg TR Peak Gr.: 41.23 mmHg RVSP: 46.00 mmHg PA Pressure: 46.00 mmHg Left Ventricle The left ventricle is normal size. There is normal LV segmental wall motion. There is normal left ventricular wall thickness. Left ventricular systolic function is normal. The left ventricular ejection fraction is within the normal range. LVEF is 50%. This study is not technically sufficient to allow evaluation of the LV diastolic function due to atrial fibrillation. Right Ventricle The right ventricle is normal size. The right ventricular systolic function is normal. Pacemaker lead is present in the right ventricle. Atria Left atrium is severely dilated. The right atrium size is normal. Aortic Valve The aortic valve is normal in structure. Mild aortic regurgitation. There is no aortic valvular stenosis. Mitral Valve The mitral valve is normal in structure. Mild mitral regurgitation. No evidence of mitral valve stenosis. Tricuspid Valve The tricuspid valve is normal in structure. Mild tricuspid regurgitation. estimated pa pressure 50 [place] [address] 2 D/M-MODE ECHOCARDIOGRAM Name: FRANCISCO J FLOWERS Room: [address] IN [facility]#: [id number] Admission: 12/23/19 Attend Phys: Johan Kim, Discharge: Date of : 50 Date of Service: 12/24/19 1541 Report #: [id number] Pulmonic Valve The pulmonary valve is normal in structure. Mild pulmonic regurgitation. Great Vessels The aortic root is normal in size. IVC is normal in size and collapses >50% with inspiration. Pericardium There is no pericardial effusion. <Conclusion> LVEF is 50%. Left atrium is severely dilated. Mild aortic regurgitation. Mild mitral regurgitation. Mild tricuspid regurgitation. estimated pa pressure 50 mm Hg <ELECTRONICALLY SIGNED> By: Celestino Hooper MD, [facility] 12/24/19 1541 1541 1541 Celestino Hooper MD, FACC /INF
[2019-12-24 16:25] VITALS: BP 141/71
[2019-12-24 20:15] VITALS: BP 112/53
[2019-12-25 00:03] VITALS: BP 145/79
[2019-12-25 04:00] VITALS: BP 162/83
[2019-12-25 04:47] LABS: HEMATOCRIT 31.5 % (37.0-47.0); HEMOGLOBIN 10.5 gm/dL (12.0-15.0); MCHC 33.3 g/dL (28.0-37.0); MCV 81.1 fL (80.0-100.0); MPV 8.5 fl. (7.2-11.1); RBC 3.89 mil/uL (4.20-5.00); WBC 9.9 thou/uL (4.0-11.0)
[2019-12-25 05:09] LABS: CALCIUM 9.1 mg/dL (8.5-10.1); CREATININE 0.9 mg/dL (0.6-1.3); MAGNESIUM 2.1 mg/dL (1.8-2.4); POTASSIUM 3.3 mmol/L (3.5-5.1)
[2019-12-25 08:00] VITALS: BP 127/72
[2019-12-25] MEDS ORDERED: ENTRESTO 24 MG1 EACH PO (10:28)
[2019-12-25 13:23] VITALS: BP 122/62
[2019-12-25] MEDS ORDERED: LASIX 20 MG TAB20 MG PO (16:22)
[2019-12-25 16:56] VITALS: BP 122/62
--- NOTE | 2019-12-26 14:43 | CON ---
[address] [address] CONSULTATION Name: FRANCISCO J FLOWERS Room: [address] IN M.R.#: [id number] Admission: 12/23/19 Attend Phys: Johan Kim MD Discharge: 12/25/19 Date of : 50 Report #: [id number] THIS REPORT FOR: //name// cc: Rosey Finley MD, David L. MD ~ THIS REPORT FOR: //name// CC: ROSEY Kim DATE OF SERVICE: 12/24/2019 CARDIOLOGY CONSULTATION HISTORY OF PRESENT ILLNESS: The patient is a 69-year-old single female who I was asked to see in the hospital today after she complained of being short of breath. The patient has an extensive and complicated past medical history. She has had multiple stents. Apparently, her first stent was placed in [facility] in 2003. She has had several stents placed by Dr. Andrade. Her last stent apparently was placed in 2017 here at [place]. She has history of atrial fibrillation and a cardiomyopathy. She apparently has had 2 attempts at radiofrequency ablation by Dr. Gracia at [facility]. She eventually underwent implantation of defibrillator at [place] in 2018. She apparently had a shock delivered from her defibrillator year ago. She apparently fell a week ago and came to the Emergency Room and required stitches. Since that time, she has noticed some bloating and weight gain. She felt somewhat short of breath. She went to see Dr. Finley yesterday. She has been somewhat confused. She saw the Orthopedics yesterday for wrist pain and she has a splint in place. She has had increasing shortness of breath, but no cough or fever. She did take an extra dose of Lasix yesterday and it did not seem to help. When she saw Dr. Finley, she was told to come to the hospital to be admitted. PAST MEDICAL HISTORY: Significant for appendectomy, carpal tunnel surgery, cholecystectomy. She has a history of hypertension, hyperlipidemia. No diabetes. CURRENT MEDICATIONS: Include albuterol inhaler, Eliquis, aspirin, Lipitor, carvedilol, diltiazem, Lasix, Imdur, lisinopril, Paxil, Carafate. ALLERGIES: SHE HAS A PREVIOUS INTOLERANCE TO CHANTIX. FAMILY HISTORY: Positive for heart disease. SOCIAL HISTORY: She is , lives [place] [address] CONSULTATION Name: LIONELFRANCISCO J AGUIARNE Room: [address]#: [id number] Admission: 12/23/19 Attend Phys: Johan Kim MD Discharge: 12/25/19 Date of : 50 Report #: [id number] smoking years ago. No alcohol abuse. REVIEW OF SYSTEMS: She is overweight, being 4 feet 11 inches and weighing 196 pounds. She apparently had a stroke in the past affecting her speech. She has asthma. No liver disease. No kidney disease. No cancer. No psychiatric illness. No chronic skin condition. PHYSICAL EXAMINATION: GENERAL: Revealed an elderly female lying in bed. She appeared in no acute distress. VITAL SIGNS: She had a blood pressure of 130/70, pulse 70. She is afebrile. HEENT: She was anicteric. Conjunctivae pink. Mucous membranes moist. NECK: Veins appeared mildly distended. CHEST: Decreased breath sounds at bases. CARDIOVASCULAR: Regular rate and rhythm. ABDOMEN: Obese. EXTREMITIES: Had trace pitting edema. Dorsalis pedis pulse 1+ bilaterally. SKIN: Cool and dry. NEUROLOGIC: Nonfocal. LABORATORY DATA: Her ECG on admission showed a ventricular paced rhythm. Her underlying rhythm appeared to represent atrial fibrillation. Her echocardiogram was performed in December earlier this month showed left ventricular function at lower limits normal with left atrial enlargement, mild aortic insufficiency. Her workup included a chest x-ray yesterday that showed mild cardiomegaly, clear lung monsalve. CT scan of the head performed yesterday without contrast showed no acute abnormality. LABORATORY DATA: Sodium 141, potassium is 2.8, her BUN is 34, creatinine is 1.3, glucose 102. Her liver function studies are normal. Troponin 0.06. BNP 8318. Her white blood cell count 8.8, hemoglobin is 9.7, hematocrit 28.9. Her percent saturation 8%, ferritin 27. IMPRESSION AND RECOMMENDATIONS: 1. Dilated ischemic cardiomyopathy. The patient is on an KIMBERLY inhibitor, beta norbert. I would consider switching from an KIMBERLY inhibitor to Entresto. I would recommend Lasix and Aldactone. 2. Atrial fibrillation. Previous ablation. The patient is anticoagulated. I would not recommend attempts at repeat cardioversion. I would continue Eliquis. 3. Coronary artery disease. Previous stents. No recent angina. Since the patient on Eliquis, I would not recommend aspirin. 4. Hypertension. The patient is on a beta norbert and KIMBERLY inhibitor. 5. Hyperlipidemia. The patient is on a statin drug. 6. Previous implantation of defibrillator. No recent discharges. 7. Previous tobacco abuse. [address] [place] [address] CONSULTATION Name: FRANCISCO J FLOWERS Room: [address] IN M.R.#: [id number] Admission: 12/23/19 Attend Phys: Johan Kim MD Discharge: 12/25/19 Date of : 50 Report #: [id number] 8. Obesity. 9. Previous stroke. <ELECTRONICALLY SIGNED> By: Rosey Hooper MD, FACC 12/26/19 1443 1809 1851Djalil Hopoer MD, FACC /nt
== END 2019-12-25 17:37 | disposition home health service (06) | DRG 291 ==
LOC: M.ERS 14:49 → M.TBA-ER 17:30 → M.2W 17:30
PROVIDERS: Family Medicine; ADMIT Internal Medicine; ATTEND Internal Medicine
DX: I13.0 Hypertensive heart and chronic kidney disease with heart failure and stage 1 through stage 4 chronic kidney disease, or unspecified chronic kidney disease (principal); G92 Toxic encephalopathy; N17.0 Acute kidney failure with tubular necrosis; I50.43 Acute on chronic combined systolic (congestive) and diastolic (congestive) heart failure; D68.69 Other thrombophilia; N39.0 Urinary tract infection, site not specified; E78.5 Hyperlipidemia, unspecified; N18.3 Chronic kidney disease, stage 3 (moderate); D64.89 Other specified anemias; E66.9 Obesity, unspecified; I25.10 Atherosclerotic heart disease of native coronary artery without angina pectoris; R73.03 Prediabetes; G47.33 Obstructive sleep apnea (adult) (pediatric); I25.5 Ischemic cardiomyopathy; F41.1 Generalized anxiety disorder; I48.91 Unspecified atrial fibrillation; Z20.828 Contact with and (suspected) exposure to other viral communicable diseases; Z95.5 Presence of coronary angioplasty implant and graft; Z90.49 Acquired absence of other specified parts of digestive tract; Z90.710 Acquired absence of both cervix and uterus; Z86.73 Personal history of transient ischemic attack (TIA), and cerebral infarction without residual deficits; Z79.01 Long term (current) use of anticoagulants; Z79.899 Other long term (current) drug therapy; Z79.82 Long term (current) use of aspirin; Z68.38 Body mass index [BMI] 38.0-38.9, adult; Z88.8 Allergy status to other drugs, medicaments and biological substances; Z87.891 Personal history of nicotine dependence; Z95.810 Presence of automatic (implantable) cardiac defibrillator

== ENCOUNTER 2019-12-31 12:48 | Emergency (ER) | payer MEDICARE, OTHER ==
[~2019-12-31] VITALS: Ht 152.4 cm; Wt 86.1 kg
[~2019-12-31 12:48] MED LIST changes: +ENTRESTO 24 MG1 EACH PO
[2019-12-31] MEDS ORDERED: ATIVAN1 M1 PO (13:16)
[2019-12-31] MEDS ORDERED: DILTIAZEM 24HR240 M1 PO (13:18)
[2019-12-31] MEDS ORDERED: IMDUR 30 MG TAB30 M1 PO (13:21)
[2019-12-31] MEDS ORDERED: MELOXICAM15 MG PO (13:22)
[2019-12-31 13:29] LABS: ABSOLUTE BASOPHILS 0.1 thou/uL (0.0-0.2); ABSOLUTE EOSINOPHILS 0.1 thou/uL (0.0-0.7); ABSOLUTE LYMPHOCYTES 1.3 thou/uL (0.8-5.3); ABSOLUTE MONOCYTES 0.9 thou/uL (0.0-1.2); ABSOLUTE NEUTROPHILS 7.2 thou/uL (1.6-8.1); BASOPHILS 0.9 %; EOSINOPHILS 1.2 %; HEMATOCRIT 37.7 % (37.0-47.0); HEMOGLOBIN 12.4 gm/dL (12.0-15.0); LYMPHOCYTES 13.9 %; MCH 26.9 pg (26.0-34.0); MCHC 32.9 g/dL (28.0-37.0); MCV 81.7 fL (80.0-100.0); MONOCYTES 8.9 %; MPV 8.3 fl. (7.2-11.1); NUCLEATED RBCS 0 /100WBC; PLATELET COUNT* 374 thou/uL (150-400); POLYS 75.1 %; RBC 4.62 mil/uL (4.20-5.00); RDW-CV 17.7 % (10.5-14.5); WBC 9.7 thou/uL (4.0-11.0)
[2019-12-31 13:38] LABS: APTT 32.6 Seconds (25.0-31.3); INR 1.2; PROTIME 12.2 Seconds (9.20-11.50)
[2019-12-31 13:42] LABS: ANION GAP 11 mmol/L (7-16); BUN 32 mg/dL (7-18); CALCIUM 8.8 mg/dL (8.5-10.1); CHLORIDE 102 mmol/L (98-107); CO2 23 mmol/L (21-32); CREATININE 1.4 mg/dL (0.6-1.3); GLUCOSE 138 mg/dL (70-99); POTASSIUM 4.1 mmol/L (3.5-5.1); SODIUM 136 mmol/L (136-145)
[2019-12-31 13:51] LABS: ALBUMIN 3.5 g/dL (3.4-5.0); ALKALINE PHOSPHATASE 140 U/L (46-116); CK-MB MASS < 0.5 ng/mL (<0.5-3.6); LIPASE 175 U/L (73-393); MAGNESIUM 2.2 mg/dL (1.8-2.4); NT-PRO BRAIN NAT PEPTIDE 697 pg/mL (<300); SGOT 17 U/L (15-37); SGPT 22 U/L (30-65); TOTAL BILIRUBIN 0.4 mg/dL (<0.1-1.0); TOTAL PROTEIN 7.9 g/dL (6.4-8.2)
[2019-12-31 15:13] VITALS: BP 130/73
--- NOTE | 2020-01-01 13:20 | EKG ---
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: : 1950 Requested By: Travis Mederos Order Number: [id number] MD: Magdiel Mitchell Measurements Intervals [place] Rate: 87 P: [place]: QRS: -5 QRSD: 89 T: 31 QT: 332 QTc: 400 Interpretive Statements Atrial fibrillation Borderline repolarization abnormality Compared to ECG 12/23/2019 15:33:27 Ventricular-paced complex(es) or rhythm no longer present Electronically Signed On 01-01-2020 13:19:51 CDT by Magidel Mitchell [email or web address] <ELECTRONICALLY SIGNED> By: Magdiel Mitchell MD, FACC 01/01/20 1319 1432 1432 Magdiel Mitchell MD, [facility] /EPI
== END 2019-12-31 15:14 | disposition home or self-care (01) ==
LOC: M.ERS 12:48
PROVIDERS: Family Medicine
DX: R53.1 Weakness (principal); I10 Essential (primary) hypertension; I25.10 Atherosclerotic heart disease of native coronary artery without angina pectoris; M19.90 Unspecified osteoarthritis, unspecified site; G47.33 Obstructive sleep apnea (adult) (pediatric); I48.91 Unspecified atrial fibrillation; Z95.5 Presence of coronary angioplasty implant and graft; Z90.49 Acquired absence of other specified parts of digestive tract; Z86.73 Personal history of transient ischemic attack (TIA), and cerebral infarction without residual deficits; Z87.891 Personal history of nicotine dependence; Z88.8 Allergy status to other drugs, medicaments and biological substances

== ENCOUNTER → 2020-01-21 | Outpatient (CLI) | payer MEDICARE, OTHER ==
[~2020-01-21] MED LIST changes: +ATIVAN1 M1 PO; +DILTIAZEM 24HR240 M1 PO; +MELOXICAM15 MG PO
== END ==
LOC: M.RAD 13:10
PROVIDERS: ATTEND Internal Medicine
DX: Z12.31 Encounter for screening mammogram for malignant neoplasm of breast (principal)

== ENCOUNTER 2020-02-03 18:46 | Inpatient (IN) | payer MEDICARE, OTHER ==
[~2020-02-03] VITALS: Ht 152.4 cm; Wt 90.3 kg
--- NOTE | ~2020-02-03 | PROC ---
[address] [address] PROCEDURE REPORT Name: FRANCISCO J FLOWERS I Room: [address] IN .R.#: [id number] Admission: 02/03/20 Attend Phys: Tree Yarbrough, Discharge: 02/08/20 Date of : 50 Report #: [id number] THIS REPORT FOR: //name// cc: Karla Jolly Tammy RNP ~ THIS REPORT FOR: //name// For GI report, please see the Provation report in Perceptive 7 content. By: [facility]2Medical Records Staff AMERICO /CHARLES
[2020-02-03 18:50] VITALS: BP 77/44
[2020-02-03] MEDS ORDERED: PAXIL20 MG PO (19:07)
[2020-02-03] MEDS ORDERED: METOLAZONE 2.52.5 MG PO (19:08)
[2020-02-03 19:49] LABS: ABSOLUTE LYMPHOCYTES 1.2 thou/uL (0.8-5.3); ABSOLUTE MONOCYTES 1.5 thou/uL (0.0-1.2); ABSOLUTE NEUTROPHILS 9.5 thou/uL (1.6-8.1); BASOPHILS 0.4 %; EOSINOPHILS 0.4 %; HEMATOCRIT 40.8 % (37.0-47.0); HEMOGLOBIN 13.5 gm/dL (12.0-15.0); MCH 27.1 pg (26.0-34.0); MCHC 33.1 g/dL (28.0-37.0); MCV 81.7 fL (80.0-100.0); MONOCYTES 11.8 %; MPV 8.1 fl. (7.2-11.1); NUCLEATED RBCS 0 /100WBC; PLATELET COUNT* 148 thou/uL (150-400); POLYS 77.4 %; RBC 4.99 mil/uL (4.20-5.00); RDW-CV 18.5 % (10.5-14.5); WBC 12.3 thou/uL (4.0-11.0)
[2020-02-03 19:53] LABS: CALCIUM 9.1 mg/dL (8.5-10.1); CREATININE 1.9 mg/dL (0.6-1.3)
[2020-02-03 19:58] LABS: MAGNESIUM 2.3 mg/dL (1.8-2.4); TOTAL BILIRUBIN 0.7 mg/dL (<0.1-1.0); TOTAL PROTEIN 7.2 g/dL (6.4-8.2)
[2020-02-03 19:59] LABS: POTASSIUM 2.8 mmol/L (3.5-5.1)
[2020-02-03 20:07] LABS: BE 5.5 mmol/L (-2 to +3); PCO2 36.8 mmHg (35.0-45.0); PO2 80.6 mmHg (75.0-100.0); pH 7.509 (7.340-7.450)
[2020-02-03 20:08] LABS: APTT 32.7 Seconds (25.0-31.3); INR 1.2; PROTIME 12.5 Seconds (9.20-11.50)
[2020-02-04] VITALS (8 sets, daily range): BP systolic 105–125; BP diastolic 41–50
--- NOTE | 2020-02-04 08:22 | EKG ---
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 : 1950 Requested By: Svitlana Kingston Order Number: [id number] MD: Celestino Hooper Measurements Intervals [place] Rate: 60 P: AL: 156 QRS: -65 QRSD: 170 T: 101 QT: 365 QTc: 365 Interpretive Statements Ventricular-paced complexes No further analysis attempted due to paced rhythm Baseline wander in lead(s) III,aVF,V2,V3 Compared to ECG 12/31/2019 14:32:48 ventricular paced rhythm now present Electronically Signed On 02-04-2020 8:21:47 CDT by Celestino Hooper [email or web address] <ELECTRONICALLY SIGNED> By: Celetsino Hooper MD, FAC 02/04/20820 57 57 Celestino Hooper MD, [facility] /EPI
[2020-02-04 09:53] LABS: ANION GAP 7 mmol/L (7-16); BUN 17 mg/dL (7-18); CALCIUM 8.4 mg/dL (8.5-10.1); CHLORIDE 96 mmol/L (98-107); CHOLESTEROL 89 mg/dL (<200); CO2 32 mmol/L (21-32); CREATININE 1.6 mg/dL (0.6-1.3); GLUCOSE 112 mg/dL (70-99); HDL CHOLESTEROL 29 mg/dL (>40); LDL CHOLESTEROL 29 mg/dL (<100); SODIUM 135 mmol/L (136-145); TC:HDL 3.1 Ratio (Not establshd); TRIGLYCERIDE 158 mg/dL (<150); VLDL 32 mg/dL (<40)
[2020-02-04 09:54] LABS: SERUM ASSESSMENT Clear
[2020-02-04 09:55] LABS: POTASSIUM 2.8 mmol/L (3.5-5.1)
[2020-02-05 00:24] VITALS: BP 106/40
[2020-02-05 04:44] VITALS: BP 103/47
[2020-02-05 05:00] LABS: HEMATOCRIT 32.7 % (37.0-47.0); MCHC 34.3 g/dL (28.0-37.0); MCV 81.6 fL (80.0-100.0); MPV 8.1 fl. (7.2-11.1); RBC 4.01 mil/uL (4.20-5.00); RDW-CV 18.3 % (10.5-14.5); WBC 8.8 thou/uL (4.0-11.0)
[2020-02-05 05:15] LABS: HEMOGLOBIN 11.2 gm/dL (12.0-15.0)
[2020-02-05 05:30] LABS: CALCIUM 7.8 mg/dL (8.5-10.1); CREATININE 1.2 mg/dL (0.6-1.3); MAGNESIUM 2.4 mg/dL (1.8-2.4); POTASSIUM 3.6 mmol/L (3.5-5.1)
[2020-02-05 08:30] VITALS: BP 112/41
--- NOTE | 2020-02-05 09:50 | CON ---
[address] [address] CONSULTATION Name: FRANCISCO J FLOWERS I Room: [address] [facility]#: [id number] Admission: 02/03/20 Attend Phys: Tree Yarbrough, Discharge: Date of : 50 Report #: [id number] THIS REPORT FOR: //name// cc: Karla Jolly Tammy RNP ~ THIS REPORT FOR: //name// CC: Magdiel Yarbrough DATE OF SERVICE: 02/04/2020 REQUESTING PHYSICIAN: Tree Yarbrough MD REASON FOR CONSULTATION: Acute kidney injury, hypokalemia. HISTORY OF PRESENT ILLNESS: The patient is a very pleasant 69-year-old female with medical history significant for coronary artery disease, presents to the hospital with complaints of feeling dizzy, not feeling well. She was found to be hypotensive with systolic blood pressure in 70s. According to the patient's daughter, the patient has not been eating and drinking well for the last 2 weeks. PAST MEDICAL HISTORY: 1. Coronary artery disease. 2. History of hypertension. 3. History of stroke. 4. Chronic atrial fibrillation. 5. Obesity. MEDICATIONS: Prior to admission reviewed. From my standpoint, she was on furosemide 40 mg twice a day, also on Coreg 25 mg twice a day. REVIEW OF SYSTEMS: Positive for the symptoms as mentioned earlier. SOCIAL HISTORY: No tobacco or alcohol abuse. FAMILY HISTORY: Noncontributory. PHYSICAL EXAMINATION: GENERAL: Awake, alert, and oriented. VITAL SIGNS: Blood pressure is 115/44, heart rate 60, afebrile. HEENT: Pupils are round. NECK: Supple. LUNGS: Clear. [address] [place] [address] CONSULTATION Name: FRANCISCO J FLOWERS I Room: [address] IN [facility]#: [id number] Admission: 02/03/20 Attend Phys: Tree Yarbrough, Discharge: Date of : 50 Report #: [id number] CARDIOVASCULAR: Regular rate. ABDOMEN: Soft. LOWER EXTREMITIES: No edema. ASSESSMENT: 1. Acute kidney injury due to underperfusion of the kidneys with hypotension. Creatinine on admission was 1.9, down to 1.6, now with hydration. Potassium 2.8. She is on potassium replacement protocol. 2. Coronary artery disease. 3. History of hypertension. PLAN: 1. Continue hydration. 2. Replace potassium. 3. Follow labs. <ELECTRONICALLY SIGNED> By: Alexx Smith MD 02/05/20 0950 1124 1810Alexx Smith MD /nt
[2020-02-05 12:30] VITALS: BP 116/47
[2020-02-05 13:13] LABS: URINE BILIRUBIN NEGATIVE (Negative); URINE BLOOD 3+ (Negative); URINE CLARITY SL CLOUDY; URINE COLOR YELLOW; URINE GLUCOSE-RANDOM NEGATIVE (Negative); URINE KETONES 1+ (Negative); URINE PROTEIN TRACE (Negative); URINE SPECIFIC GRAVITY 1.015 (1.005-1.030); URINE UROBILINOGEN 0.2 E.U./dl (0.2-1.0)
[2020-02-05 13:16] LABS: URINE LEUKOCYTES-REFLEX 2+ (Negative); URINE NITRITE-REFLEX POSITIVE (Negative)
[2020-02-05 13:20] LABS: SQUAMOUS >10 Many /LPF (0-3)
[2020-02-05 13:21] LABS: BACTERIA-REFLEX >30 Many /HPF (None Seen); CASTS None Seen /LPF (None Seen); MUCUS 0-3 Light strn/LPF (None Seen)
[2020-02-05 13:22] LABS: CRYSTALS None Seen /LPF (None Seen)
[2020-02-05 16:00] VITALS: BP 148/58
[2020-02-05 20:00] VITALS: BP 128/46
[2020-02-06] VITALS: BP 122/42
[2020-02-06 01:36] LABS: URINE BILIRUBIN NEGATIVE (Negative); URINE BLOOD 2+ (Negative); URINE COLOR YELLOW; URINE GLUCOSE-RANDOM NEGATIVE (Negative); URINE KETONES 1+ (Negative); URINE NITRITE-REFLEX NEGATIVE (Negative); URINE PROTEIN TRACE (Negative); URINE UROBILINOGEN 0.2 E.U./dl (0.2-1.0)
[2020-02-06 01:37] LABS: URINE CLARITY CLOUDY; URINE LEUKOCYTES-REFLEX 3+ (Negative)
[2020-02-06 01:43] LABS: BACTERIA-REFLEX >30 Many /HPF (None Seen); CASTS None Seen /LPF (None Seen); CRYSTALS None Seen /LPF (None Seen); MUCUS 4-6 Moderate strn/LPF (None Seen); SQUAMOUS 0-3 Few /LPF (0-3); URINE WBC-REFLEX >25 Many /HPF (0-5)
[2020-02-06 04:00] VITALS: BP 120/40
[2020-02-06 05:14] LABS: HEMATOCRIT 31.8 % (37.0-47.0); HEMOGLOBIN 10.7 gm/dL (12.0-15.0); MCH 27.7 pg (26.0-34.0); MCHC 33.7 g/dL (28.0-37.0); MCV 82.1 fL (80.0-100.0); MPV 8.1 fl. (7.2-11.1); RBC 3.88 mil/uL (4.20-5.00); RDW-CV 18.7 % (10.5-14.5); WBC 8.9 thou/uL (4.0-11.0)
[2020-02-06 05:48] LABS: ALBUMIN 2.4 g/dL (3.4-5.0); CALCIUM 8.6 mg/dL (8.5-10.1); MAGNESIUM 2.3 mg/dL (1.8-2.4); TOTAL BILIRUBIN 0.4 mg/dL (<0.1-1.0); TOTAL PROTEIN 5.7 g/dL (6.4-8.2)
[2020-02-06 08:00] VITALS: BP 143/57
[2020-02-06 12:45] VITALS: BP 139/43
[2020-02-06 18:15] VITALS: BP 112/43
[2020-02-06 20:00] VITALS: BP 112/47
[2020-02-07] VITALS: BP 115/45
[2020-02-07 04:00] VITALS: BP 112/44
[2020-02-07 05:18] LABS: HEMATOCRIT 31.4 % (37.0-47.0); HEMOGLOBIN 10.4 gm/dL (12.0-15.0); MCH 27.4 pg (26.0-34.0); MCHC 33.1 g/dL (28.0-37.0); MCV 82.8 fL (80.0-100.0); MPV 7.5 fl. (7.2-11.1); RBC 3.79 mil/uL (4.20-5.00); RDW-CV 19.3 % (10.5-14.5); WBC 7.5 thou/uL (4.0-11.0)
[2020-02-07 05:50] LABS: CALCIUM 8.6 mg/dL (8.5-10.1); CREATININE 1.1 mg/dL (0.6-1.3); POTASSIUM 4.2 mmol/L (3.5-5.1)
[2020-02-07 08:00] VITALS: BP 120/63
[2020-02-07 12:00] VITALS: BP 106/46
[2020-02-07 16:00] VITALS: BP 110/43
[2020-02-07 20:00] VITALS: BP 111/42
[2020-02-08] VITALS: BP 102/43
[2020-02-08 08:00] VITALS: BP 121/55
[2020-02-08] MEDS ORDERED: LANOXIN125 MCG PO (09:14)
[2020-02-08] MEDS ORDERED: PROTONIX40 M4 PO (09:14)
[2020-02-08] MEDS ORDERED: MIRALAX17 GM PO (09:14)
[2020-02-08] MEDS ORDERED: LASIX 20 MG TAB20 MG PO (09:14)
[2020-02-08] MEDS ORDERED: CIPRO500 MG PO (09:14)
[2020-02-08] MEDS ORDERED: FERREX 150 PLU1 EAC1 PO (09:14)
[2020-02-08] MEDS ORDERED: COREG6.25 MG PO (09:14)
[2020-02-08 12:33] VITALS: BP 120/48
[2020-02-08 13:11] VITALS: BP 120/48
--- NOTE | 2020-02-09 16:06 | PATH ---
[address] [address] PATHOLOGY RPT PROCEDURE Name: KRYSTEN SHAY I Room: [address] IN .R.#: [id number] Admission: 02/03/20 Date of : 50 Discharge: 02/08/20 Report #: [id number] Path Case #: [id number] [facility] Accession Number: [id number] . 01 Material submitted: . esophagus - ESOPHAGEAL BIOPSY FOR BARRETTS . 01 Clinician provided ICD-10: I24.1 N17.0 . 01 Clinical history: . NON STEMI, LACTIC ACIDOSIS, ACUTE ON CHRONIC RENAL FAILURE . 02 Diagnosis: Esophageal biopsy: - Benign gastric/columnar mucosa with moderate nonspecific chronic and acute inflammation, negative for goblet cells/diagnostic Trejo's metaplasia, granulomas and dysplasia. . (URIAH:annette; 02/09/2020) [facility] 02/09/2020 1416 Local . 02 Electronically signed: . Alfonso Osborne MD, Pathologist NPI- [id number] . 01 Gross description: . Received in formalin labeled "Krysten Shay, esophageal biopsy for Trejo's" is a 0.3 x 0.3 x 0.1 cm fragment of gross-brown soft tissue. The specimen is submitted entirely in A1. ([facility]; 02/08/2020) [facility] 02/08/2020 0835 Local . 02 Pathologist provided ICD-10: K20.9 . 02 CPT . 452971 Specimen Comment: A courtesy copy of this report has been sent to [phone] Specimen Comment: [phone], , Specimen Comment: Report sent to ,DR THOMAS,DR CARVER Specimen Comment: DR DAY Specimen Comment: A duplicate report has been generated due to demographic updates. Performed at: [address] [facility] [address], [place] [address] [place] [address] PATHOLOGY RPT PROCEDURE Name: KRYSTEN SHAY Crissy Room: [address] IN ..#: [id number] Admission: 02/03/20 Date of : 50 Discharge: 02/08/20 Report #: [id number] Path Case #: [id number] MD Seven Pena MD Phone: [phone] Performed at: [facility] [address], [place], [place] [id number] MD Alfonso Osborne MD Phone: [phone]
== END 2020-02-08 13:55 | disposition home health service (06) | DRG 682 ==
LOC: M.ERS 18:46 → M.TBA-ER 22:36 → M.2W 02-04 16:57
PROVIDERS: Internal Medicine; Personal Emergency Response Attendant; Registered Nurse; ADMIT Family Medicine; ATTEND Family Medicine
DX: N17.0 Acute kidney failure with tubular necrosis (principal); I21.A1 Myocardial infarction type 2; R65.11 Systemic inflammatory response syndrome (SIRS) of non-infectious origin with acute organ dysfunction; K92.1 Melena; N39.0 Urinary tract infection, site not specified; E87.2 Acidosis; I48.20 Chronic atrial fibrillation, unspecified; I42.9 Cardiomyopathy, unspecified; I50.42 Chronic combined systolic (congestive) and diastolic (congestive) heart failure; Z95.5 Presence of coronary angioplasty implant and graft; E87.6 Hypokalemia; B96.89 Other specified bacterial agents as the cause of diseases classified elsewhere; K59.00 Constipation, unspecified; I11.0 Hypertensive heart disease with heart failure; M19.90 Unspecified osteoarthritis, unspecified site; F41.1 Generalized anxiety disorder; I25.10 Atherosclerotic heart disease of native coronary artery without angina pectoris; I95.9 Hypotension, unspecified; E78.5 Hyperlipidemia, unspecified; N20.0 Calculus of kidney; K21.9 Gastro-esophageal reflux disease without esophagitis; E86.9 Volume depletion, unspecified; K22.8 Other specified diseases of esophagus; R13.10 Dysphagia, unspecified; R73.03 Prediabetes; G47.33 Obstructive sleep apnea (adult) (pediatric); Z20.828 Contact with and (suspected) exposure to other viral communicable diseases; Z86.73 Personal history of transient ischemic attack (TIA), and cerebral infarction without residual deficits; Z79.01 Long term (current) use of anticoagulants; Z99.81 Dependence on supplemental oxygen; Z79.899 Other long term (current) drug therapy; Z90.49 Acquired absence of other specified parts of digestive tract; Z88.8 Allergy status to other drugs, medicaments and biological substances; Z95.810 Presence of automatic (implantable) cardiac defibrillator; Z87.891 Personal history of nicotine dependence

== ENCOUNTER → 2020-03-01 | Outpatient (CLI) | payer MEDICARE, OTHER ==
[~2020-03-01] MED LIST changes: +CIPRO500 MG PO; +FERREX 150 PLU1 EAC1 PO; +LANOXIN125 MCG PO; +METOLAZONE 2.52.5 MG PO; +MIRALAX17 GM PO; +PAXIL20 MG PO; +PROTONIX40 M4 PO
== END ==
LOC: M.LAB 18:22
PROVIDERS: ATTEND Nurse Practitioner
DX: I48.91 Unspecified atrial fibrillation (principal)

== ENCOUNTER → 2020-03-10 | Outpatient (CLI) | payer MEDICARE, OTHER ==
--- NOTE | 2020-03-10 17:57 | CARDNUC ---
[place] [address] CARDIAC NUCLEAR IMAGING REPORT Name: FRANCISCO J FLOWERS I Room: [facility]#: [id number] Admission: 03/10/20 Attend Phys: Magdiel Mitchell, Discharge: Date of : 50 Date of Service: 03/10/20 1757 Report #: [id number] THIS REPORT FOR: cc: Karla Jolly Tammy RNP Biggs, F. Douglas MD [facility] ~ APPROVED REPORT Study performed: 03/10/2020 11:44:10 Exam: Nuclear Stress Test Indication: CAD Patient Location: Out-Patient Stress Tech: Maisha Soler Ht: 5 ft 0 in Wt: 183 lbs BSA: 1.80 m2 BMI: 35.73 Medical History Medical History: Atrial Fibrillation, CAD non obstructive, Cardiomyopathy, CHF, HTN, Hyperlipidemia, Stroke/TIA, Smoking Medications: eliquis, atorvastatin, dogoxin, lasix, metoprolol Allergies: chantix Cardiac Risk Factors: Age, HTN, Hyperlipidemia, Tobacco History (Former) Exercise History: Sedentary Stress Test Details Stress Test: Pharmacologic stress testing performed using 0.4 mg of regadenoson per 5 mL given IV over 10 seconds. Reason for pharmacologic stress test: physical limitation. HR Resting HR: 97 bpm Max Heart Rate (APMHR): 151 bpm Max HR Achieved: 117 bpm Target HR (85% APMHR): 128 bpm % of APMHR: 77 Recovery HR: 117 bpm HR response to stress: Normal HR response to stress BP Resting BP: 143/87 mmHg Max BP: 141/68 [place] [address] CARDIAC NUCLEAR IMAGING REPORT Name: FRANCISCO J FLOWERS I Room: [facility]#: [id number] Admission: 03/10/20 Attend Phys: Magdiel Mitchell, Discharge: Date of : 50 Date of Service: 03/10/20 1757 Report #: [id number] BP response to stress: Normal blood pressure response to stress. ECG Resting ECG: Atrial Fibrillation with nonspecific ST-T abnormalities Stress ECG: Atrial Fibrillation with nonspecific ST-T abnormalities ST Change: None Arrhythmia: Atrial fibrillation Recovery ECG: Atrial Fibrillation with nonspecific ST-T abnormalities Recovery ST Change: None Recovery Arrhythmia: Atrial Fibrillation Clinical Reason for Termination: Completed protocol Stress Symptoms: None Stress ECG Conclusion Normal hemodynamic response to pharmacologic stress. Non-diagnostic EKG stress due to failure to attain target HR. NM EXAM: Myocardial Perfusion REST/STRESS Imaging Protocol: Rest Tc-99m/Stress Tc-99m 1 day Resting Data Rest SPECT myocardial perfusion imaging was performed in supine position 30 minutes following the intravenous injection of 10.6 mCi of Tc-99m Sestamibi. Time of rest injection: 10:05 The images were gated to evaluate regional wall motion and calculate left ventricular ejection fraction. Administration Route: IV Administration Site: Right Hand Pharmacologic Stress Pharmacologic stress test was performed by injecting Regadenoson 0.4 mg IV push followed by the intravenous injection of 33.3 mCi of Tc-99m Sestamibi. Time of stress injection: 11:30 Administration Route: IV Administration Site: Right Hand Heart Rate at time of stress injection: 117 bpm. Gated Stress SPECT was performed 40 minutes [place] [address] CARDIAC NUCLEAR IMAGING REPORT Name: FRANCISC OJ FLOWERS I Room: [facility]#: [id number] Admission: 03/10/20 Attend Phys: Magdiel Mitchell, Discharge: Date of : 50 Date of Service: 03/10/20 1757 Report #: [id number] The images were gated to evaluate regional wall motion and calculate left ventricular ejection fraction. Prone imaging was performed. Study Quality Study: Good Artifact: Mild Soft tissue attenuation artifact Lung Uptake: Normal Study Data At rest, the left ventricular ejection fraction was 51%.. Post stress, the left ventricular ejection was 55%.. SSS: 4 SRS: 0 SDS: 4 TID = 0.92. Perfusion The resting study was normal with exception of excessive bowel uptake. The post-rest images were also normal with excessive bowel uptake. Prone images demonstrated a moderate in size and mild intensity inferior defect. There were no reversible defects seen there was no evidence of myocardial ischemia Images were reviewed using Reviewspotter. Wall Motion Normal left ventricular wall motion. Nuclear Conclusion ECG Findings: non-diagnostic Clinical Findings: negative for ischemia Nuclear Findings: negative for ischemia Exercise Capacity: not assessed Left Ventricular Function: normal Risk Study: low Normal study. No scintigraphic evidence for myocardial ischemia or scar. <Conclusion> Normal hemodynamic response to pharmacologic stress. Non-diagnostic EKG stress due to failure to attain target HR. <ELECTRONICALLY SIGNED> By: Vicky Silva MD, FACC 03/10/201756 56 56 Vicky Silva MD, FACC /INF
== END ==
LOC: M.NUC 08:00 → M.CRD 09:00 → M.NUC 09:37
PROVIDERS: ATTEND Internal Medicine Cardiovascular Disease
DX: I25.111 Atherosclerotic heart disease of native coronary artery with angina pectoris with documented spasm (principal)

== ENCOUNTER → 2020-10-22 | Outpatient (CLI) | payer MEDICARE, OTHER | LOC: M.LAB 11:40 | PROVIDERS: ATTEND Registered Nurse | DX: I48.21 Permanent atrial fibrillation (principal); I10 Essential (primary) hypertension; I25.5 Ischemic cardiomyopathy ==

== ENCOUNTER → 2020-11-30 | Day surgery (SDC) | payer MEDICARE, OTHER ==
[~2020-11-30] MED LIST changes: +ADULT LOW DOSE81 MG PO; +PLAVIX 75 MG TA75 MG PO
--- NOTE | ~2020-11-30 | PROC ---
[address] [address] PROCEDURE REPORT Name: FRANCISCO J FLOWERS I Room: [facility]#: [id number] Admission: 11/30/20 Attend Phys: Servando Cortez DO Discharge: Date of : 50 Report #: [id number] THIS REPORT FOR: cc: Mikel Webb MD, Meng MD [facility],Medical Records Staff ~ For GI report, please see the Provation report in Perceptive 7 content. By: 1443Medical Records Staff TATI /CHARLES
[2020-11-30 09:48] LABS: HEMATOCRIT 42.3 % (37.0-47.0); HEMOGLOBIN 14.2 gm/dL (12.0-15.0); MCH 29.2 pg (26.0-34.0); MCHC 33.5 g/dL (28.0-37.0); MCV 87.3 fL (80.0-100.0); RBC 4.85 mil/uL (4.20-5.00); RDW-CV 15.8 % (10.5-14.5); WBC 9.3 thou/uL (4.0-11.0)
[2020-11-30 09:55] LABS: CALCIUM 9.4 mg/dL (8.5-10.1); POTASSIUM 3.5 mmol/L (3.5-5.1)
--- NOTE | 2020-11-30 11:16 | EKG ---
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 : 1950 Requested By: Héctor Nguyễn Order Number: [id number] Reading MD: Tommie Ku Measurements Intervals [place] Rate: 68 P: [place]: QRS: 6 QRSD: 91 T: -65 QT: 384 QTc: 409 Interpretive Statements Atrial fibrillation and V-paced complexes No further rhythm analysis attempted due to paced rhythm Repol abnrm suggests ischemia, anterolateral Compared to ECG 02/03/2020 18:58:28 Possible ischemia now present Electronically Signed On 11-30-2020 11:15:59 CDT by Tommie Ku [email or web address] <ELECTRONICALLY SIGNED> By: Tommie Ku MD, [facility] 11/30/20 1115 0 0 Tommie Ku MD, [facility] /EPI
--- NOTE | 2020-12-15 17:07 | PATH ---
[address] [address] PATHOLOGY RPT PROCEDURE Name: KRYSTEN SHAY Crissy Room: [facility].#: [id number] Admission: 11/30/20 Date of : 50 Discharge: Report #: [id number] Path Case #: [id number] [facility] Accession Number: [id number] . 01 Material submitted: . PART A: cecum - HOT SNARE CECAL POLYP PART B: colon - MID ASCENDING COLON POLP COLD SNARE. Modifiers: mid, ascending PART C: colon - PROXIMAL TRANSVERSE COLON POLYPS X4 COLD SNARE. Modifiers: transverse, proximal PART D: colon - MID TRANSVERSE COLON POLYP COLD SNARE. Modifiers: mid, transverse PART E: colon - DESCENDING COLON POLYP COLD SNARE. Modifiers: descending . 01 Clinical history: . HX OF COLON POLYPS . 02 Diagnosis: A. Large bowel "cecal polyp", biopsy: - Tubular adenoma; negative for high-grade dysplasia and malignancy. . B. Large bowel "mid ascending colon polyp", biopsy: - Tubular adenoma; negative for high-grade dysplasia and malignancy. . C. Large bowel "proximal transverse colon polyps (4)", biopsy: - Tubular adenoma; negative for high-grade dysplasia and malignancy. . D. Large bowel "mid transverse colon polyp", biopsy: - Tubular adenoma; negative for high-grade dysplasia and malignancy. . E. Large bowel "descending colon polyp", biopsy: - Tubular adenoma; negative for high-grade dysplasia and malignancy. . (MADHAV:bobbi; 12/03/2020) [facility] 12/15/2020 1656 Local . 02 Diagnosis provided by: . Connor Levy MD, Pathologist NPI- [id number] . 02 Electronically signed: . Gabo Otero MD, Pathologist NPI- [id number] . 01 Gross description: . A. The specimen is received in formalin, labeled "Krysten Shay, hot snare cecal polyp". Received is a segment of pale gross tissue measuring 0.3 cm in maximum dimensions. The [place] [address] PATHOLOGY RPT PROCEDURE Name: KRYSTEN SHAY I Room: [facility].#: [id number] Admission: 11/30/20 Date of : 50 Discharge: Report #: [id number] Path Case #: [id number] cassette A1. . B. The specimen is received in formalin, labeled "Krysten Shay, mid ascending colon polyp cold snare". Received are two segments of pale gross tissue measuring 0.2 and 0.3 cm in maximum dimensions. The specimen is submitted entirely in cassette B1. . C. The specimen is received in formalin, labeled "Krysten Shay, proximal transverse colon polyp (4) cold snare". Received are two segments of pale gross tissue measuring 0.3 and 0.5 cm in maximum dimensions. The specimen is submitted entirely in cassette C1. Upon careful inspection infiltration, no additional tissue is found remaining within the container. . D. The specimen is received in formalin, labeled "Krysten Shay, mid transverse colon polyp cold snare". Received is a segment of pale gross tissue measuring 0.4 cm in maximum dimensions. The specimen is submitted entirely in cassette D1. . E. The specimen is received in formalin, labeled "Krysten Shay, descending colon polyp cold snare". Received is a segment of pale gross tissue measuring 0.3 cm in maximum dimensions. The specimen is submitted entirely in cassette E1. ([facility]; 12/02/2020) [facility] 12/02/2020 1305 Local . 02 Pathologist provided ICD-10: D12.0, D12.2, D12.3, D12.4, Z86.010 . 02 CPT . 958423, 001121, 248804, 330380, 670046 Specimen Comment: A courtesy copy of this report has been sent to [phone] Specimen Comment: [id number] Specimen Comment: Report sent to / DR PETER Performed at: 01 [facility] [address] [facility] [address], [place] [id number] MD Roosevelt Maher MD Phone: [phone] Performed at: [address] [facility] [address] [id number] MD Gabo Otero MD Phone: [phone]
== END | disposition home or self-care (01) ==
LOC: M.SUR 06:50
PROVIDERS: Anesthesiology; ATTEND Internal Medicine Gastroenterology
DX: Z12.11 Encounter for screening for malignant neoplasm of colon (principal); Z86.010 Personal history of colon polyps; D12.0 Benign neoplasm of cecum; D12.2 Benign neoplasm of ascending colon; D12.3 Benign neoplasm of transverse colon; D12.4 Benign neoplasm of descending colon; K57.30 Diverticulosis of large intestine without perforation or abscess without bleeding; K64.4 Residual hemorrhoidal skin tags; I11.0 Hypertensive heart disease with heart failure; I50.9 Heart failure, unspecified; I48.91 Unspecified atrial fibrillation; M19.90 Unspecified osteoarthritis, unspecified site; Z98.890 Other specified postprocedural states; Z79.899 Other long term (current) drug therapy; Z79.01 Long term (current) use of anticoagulants

== ENCOUNTER → 2021-02-09 | Outpatient (CLI) | payer MEDICARE, OTHER | LOC: M.RAD 09:00 | PROVIDERS: ATTEND Internal Medicine | DX: Z12.31 Encounter for screening mammogram for malignant neoplasm of breast (principal); M85.88 Other specified disorders of bone density and structure, other site; M81.0 Age-related osteoporosis without current pathological fracture ==